=== PATIENT | female | born 1935 | race Caucasian/White ===

== ENCOUNTER 2017-02-19 12:07 | Emergency (ER) | payer MEDICARE, MEDICAID ==
[~2017-02-19] VITALS: Ht 157.5 cm; Wt 46.7 kg
--- NOTE | 2017-02-19 12:15 | NUR ---
RAC #20 IV ACCESS. BLOOD SAMPLE COLLECTED SENT TO LAB
[2017-02-19 12:17] LABS: BASOPHILS # (AUTO) 0.1 /CMM (0.0-0.2); BASOPHILS % (AUTO) 1.3 % (0.0-2.0); EOSINOPHILS % (AUTO) 0.5 % (0.0-6.0); HEMATOCRIT 32 % (33-45); LYMPHOCYTES # (AUTO) 1.9 /CMM (0.8-4.8); LYMPHOCYTES % (AUTO) 36.8 % (20.0-44.0); MEAN CORPUSCULAR HEMOGLOBIN 21 PG (26.0-33.0); MEAN CORPUSCULAR HGB CONC 31 g/dl (31.0-36.0); MEAN CORPUSCULAR VOLUME 65 fL (82-100); MONOCYTES # (AUTO) 0.2 /CMM (0.1-1.30); MONOCYTES % (AUTO) 4.7 % (2.0-12.0); NEUTROPHILS % (AUTO) 56.7 % (43.0-81.0); PLATELET COUNT (AUTO) 151 /CMM (150-450); RDW COEFFICIENT OF VARIATION 15.8 (11.5-15.0); RED BLOOD CELL COUNT(AUTO) 4.91 MIL/uL (4.0-5.2); WHITE BLOOD COUNT (AUTO) 5.2 K/uL (4.3-11.0)
--- NOTE | 2017-02-19 12:18 | NUR ---
PT TAKEN TO CT SCAN
[2017-02-19] MEDS ORDERED: IV NS 0.9% 1,000 ML BAG IV ONE (12:30)
[2017-02-19 12:32] LABS: CALCIUM, SERUM 8.5 mg/dL (8.5-10.1); CARBON DIOXIDE 31 mmol/L (21-32); CHLORIDE 105 mmol/L (98-107); CREATININE 0.8 mg/dL (0.6-1.3); GLUCOSE 191 mg/dL (74-106); POTASSIUM 3.9 mmol/L (3.5-5.1); SODIUM SERUM 140 mmol/L (136-145); UREA NITROGEN, BLOOD 17 mg/dL (7-18)
[2017-02-19 12:39] LABS: TROPONIN I < 0.017 ng/mL (0.00-0.056)
[2017-02-19 12:40] LABS: INR 1.01 (0.87-1.13); PROTHROMBIN TIME 10.5 SECS (9.5-12.7)
--- NOTE | 2017-02-19 12:56 | NUR ---
SPOKE WITH ALEJANDRA AT [facility] TO CHECK ON THE STATUS OF THE CT READ. PER ALEJANDRA THEY HAVE NOT RECEIVED IMAGES. TOLD ALEJANDRA I WILL CALL RADIOLOGY TO RESEND IMAGES AND ALEJANDRA SAID AGREED TO WATCH FOR THE IMAGES AND EXPEDITE THE READ ONCE RECEIVED.
--- NOTE | 2017-02-19 12:58 | NUR ---
CALLED RADIOLOGY AND ASKED FOR IMAGES TO BE RESENT TO [facility].
[2017-02-19] MEDS ORDERED: CALC500T3 PO (13:16)
[2017-02-19] MEDS ORDERED: MEMA28CA PO (13:16)
[2017-02-19] MEDS ORDERED: MULT-213 PO (13:16)
[2017-02-19] MEDS ORDERED: FOLI1TAB16 PO (13:16)
[2017-02-19] MEDS ORDERED: CHOL100062 PO (13:16)
[2017-02-19] MEDS ORDERED: LEVO88TA5 PO (13:16)
[2017-02-19] MEDS ORDERED: ESCI20TA PO (13:16)
--- NOTE | 2017-02-19 13:48 | NUR ---
URINE SAMPLE COLLECTED SENT TO LAB
[2017-02-19 13:58] LABS: APPEARANCE,URINE Clear (CLEAR); BILIRUBIN,URINE Negative (NEGATIVE); BLOOD, URINE Trace-lysed Ery/uL (NEGATIVE); COLOR,URINE Yellow (YELLOW); KETONES,URINE Negative (NEGATIVE); LEUKOCYTE ESTERASE ,URINE Negative (NEGATIVE); NITRITE, URINE Negative (NEGATIVE); PROTEIN,URINE Negative (NEGATIVE); UGLUCOSE Negative (NEGATIVE); UROBILINOGEN,URINE 0.2 EU/dL (0.2)
[2017-02-19 14:07] LABS: BACTERIA,URINE None seen /HPF (None Seen); RBC,URINE 0-2 /HPF (0-2); SQUAMOUS EPITHELIAL CELL,UR Few /HPF (None Seen); WBC,URINE 0-2 /HPF (0-3)
--- NOTE | 2017-02-19 14:45 | NUR ---
CALLED [facility] TO FOLLOW UP WITH DESTINY, SPOKE WITH GORAN WHO SAID THEY HAVE NOT YET RECEIVED THE IMAGES. TRANSFERRED CALL TO RADIOLOGY AND ASKED GORAN TO SPEAK TO THEM DIRECTLY TO VERIFY THAT IMAGES ARE RECEIVED.
--- NOTE | 2017-02-19 14:56 | NUR ---
CALLED BACK TO [facility] TO CONFIRM THAT IMAGES ARE RECEIVED AND TO EXPEDITE THE READ. PER BRANDEN AT [facility] THEY HAVE NOW RECEIVED THE IMAGES AND ARE NOW WORKING ON IT.
--- NOTE | 2017-02-19 15:25 | NUR ---
Patient discharged to home in stable condition. Written and verbal after care instructions given. Patient verbalizes understanding of instruction.
--- NOTE | 2017-02-19 15:25 | NUR ---
IV removed. Catheter intact and site benign. Pressure and 4x4 applied to site. No bleeding noted.
[2017-02-19 15:46] VITALS: BP 123/79
== END 2017-02-19 15:47 | disposition home or self-care (01) ==
LOC: ER 12:11
DX: R55 Syncope and collapse (principal); F02.80 Dementia in other diseases classified elsewhere, unspecified severity, without behavioral disturbance, psychotic disturbance, mood disturbance, and anxiety; G30.9 Alzheimer's disease, unspecified; F32.9 Major depressive disorder, single episode, unspecified; R82.99 Other abnormal findings in urine
CPT/HCPCS: 36415; 70450-TC; 71010-TC; 72125-TC; 80048-TC; 81000-TC; 82962-TC; 84484-TC; 85025-TC; 85730-TC; 87086-TC; A4606; J7030; Z7610

== ENCOUNTER 2017-09-30 14:46 | Emergency (ER) | payer MEDICARE, MEDICAID ==
[~2017-09-30] VITALS: Ht 157.5 cm; Wt 46.7 kg
[~2017-09-30 14:46] MED LIST: CALC500T3 PO; CHOL100062 PO; ESCI20TA PO; FOLI1TAB16 PO; LEVO88TA5 PO; MEMA28CA PO; MULT-213 PO
--- NOTE | 2017-09-30 14:46 | NUR ---
BIB 88 R. EYEBROW LAC, S/P SLIP AND FALL OUT OF SHOWER C-COLLAR IN PLACE
[2017-09-30] MEDS ORDERED: LIDOCAINE /MPF 1% VIAL 5 ML VIAL ONE (15:35)
--- NOTE | 2017-09-30 16:48 | NUR ---
Patient discharged to home in stable condition. Written and verbal after care instructions given. Patient verbalizes understanding of instruction.
[2017-09-30 16:51] VITALS: BP 130/90
== END 2017-09-30 16:57 | disposition home or self-care (01) ==
LOC: ER 14:50
DX: S01.111A Laceration without foreign body of right eyelid and periocular area, initial encounter (principal); S09.8XXA Other specified injuries of head, initial encounter; G30.9 Alzheimer's disease, unspecified; F02.80 Dementia in other diseases classified elsewhere, unspecified severity, without behavioral disturbance, psychotic disturbance, mood disturbance, and anxiety; F32.9 Major depressive disorder, single episode, unspecified; W01.198A Fall on same level from slipping, tripping and stumbling with subsequent striking against other object, initial encounter; Y93.89 Activity, other specified; Y92.89 Other specified places as the place of occurrence of the external cause; Y99.8 Other external cause status
CPT/HCPCS: 70450-TC; 72125-TC; A4606; A6402; J3490; Z7610

== ENCOUNTER 2017-10-07 15:42 | Emergency (ER) | payer MEDICARE, MEDICAID ==
[~2017-10-07] VITALS: Ht 152.4 cm; Wt 44.9 kg
[2017-10-07 16:02] VITALS: BP 134/77
== END 2017-10-07 16:53 | disposition home or self-care (01) ==
LOC: ER 15:46
DX: S01.111D Laceration without foreign body of right eyelid and periocular area, subsequent encounter (principal); F32.9 Major depressive disorder, single episode, unspecified; G30.9 Alzheimer's disease, unspecified; F02.80 Dementia in other diseases classified elsewhere, unspecified severity, without behavioral disturbance, psychotic disturbance, mood disturbance, and anxiety; X58.XXXD Exposure to other specified factors, subsequent encounter
CPT/HCPCS: 99282; A4606; Z7610

== ENCOUNTER 2020-01-18 09:08 | Emergency (ER) | payer MEDICARE, OTHER ==
[~2020-01-18] VITALS: Ht 160 cm; Wt 49.9 kg
[~2020-01-18 09:08] MED LIST changes: -CALC500T3 PO; +CALC500T89 PO
--- NOTE | 2020-01-18 09:17 | NUR ---
SEEN AND EXMAINED BY .
--- NOTE | 2020-01-18 09:20 | NUR ---
IV LINE ESTABLISHED BLOOD DRAWN AND SENT TO LAB.
[2020-01-18] MEDS ORDERED: IV NS 0.9% 500 ML BAG IV ONE (09:30)
[2020-01-18 09:36] LABS: BASOPHILS % (AUTO) 0.6 % (0.0-2.0); HEMOGLOBIN 11.1 g/dL (11.5-14.8); LYMPHOCYTES # (AUTO) 2.4 /CMM (0.8-4.8); MONOCYTES # (AUTO) 0.3 /CMM (0.1-1.30)
[2020-01-18 09:44] LABS: CALCIUM, SERUM 8.7 mg/dL (8.5-10.1); CREATININE 0.8 mg/dL (0.6-1.3); POTASSIUM 3.9 mmol/L (3.5-5.1)
[2020-01-18 09:50] LABS: ALBUMIN 3.5 g/dL (3.4-5.0); BILIRUBIN,DIRECT 0.1 mg/dL (0.0-0.2); BILIRUBIN,TOTAL 0.4 mg/dL (0.2-1.0); TOTAL PROTEIN, SERUM 7.2 g/dL (6.4-8.2)
--- NOTE | 2020-01-18 09:52 | NUR ---
SENIOR CORPORATE STRATEGY MANAGER AT BEDSIDE FOR XRAY.
[2020-01-18 10:07] LABS: EOSINOPHILS % (AUTO) 0.2 % (0.0-6.0); HEMATOCRIT 36 % (33-45); LYMPHOCYTES % (AUTO) 44.9 % (20.0-44.0); MEAN CORPUSCULAR HGB CONC 31 g/dl (31.0-36.0); MEAN CORPUSCULAR VOLUME 65 fL (82-100); NEUTROPHILS # (AUTO) 2.6 /CMM (1.8-8.9); NEUTROPHILS % (AUTO) 48.3 % (43.0-81.0); PLATELET COUNT (AUTO) 203 /CMM (150-450); RED BLOOD CELL COUNT(AUTO) 5.49 MIL/uL (4.0-5.2); WHITE BLOOD COUNT (AUTO) 5.4 K/uL (4.3-11.0)
--- NOTE | 2020-01-18 11:12 | NUR ---
report given to Danna ALEJANDRA for luis.
--- NOTE | 2020-01-18 11:22 | NUR ---
TRIP NUMBER [id number]. ETA 30 MINUTES.
[2020-01-18 12:25] VITALS: BP 116/71
--- NOTE | 2020-01-18 12:25 | NUR ---
patient picked up by private ambulance going back to snf in no distress.
== END 2020-01-18 12:25 ==
LOC: ER 09:12
DX: U07.1 COVID-19 (principal); J40 Bronchitis, not specified as acute or chronic; R55 Syncope and collapse; S00.03XA Contusion of scalp, initial encounter; W18.39XA Other fall on same level, initial encounter; Y92.129 Unspecified place in nursing home as the place of occurrence of the external cause; M50.321 Other cervical disc degeneration at C4-C5 level; M48.02 Spinal stenosis, cervical region; G30.9 Alzheimer's disease, unspecified; F02.80 Dementia in other diseases classified elsewhere, unspecified severity, without behavioral disturbance, psychotic disturbance, mood disturbance, and anxiety; Z79.899 Other long term (current) drug therapy; E89.0 Postprocedural hypothyroidism; Z79.890 Hormone replacement therapy
CPT/HCPCS: 36415; 70450; 71045; 72125; 80048; 80076; 85025; 87081; 93005; 96360; 99285; J7040

== ENCOUNTER 2022-06-02 11:55 | Inpatient (IN) | payer MEDICARE, OTHER ==
[~2022-06-02] VITALS: Ht 152.4 cm; Wt 46.3 kg
--- NOTE | 2022-06-02 11:55 | NUR ---
RECEIVED PT 86 YRS FEMALE TRANSFER FROM SNF WITH GENRALIZED WEEKNEESS AWAKE AND ALERT RESPIRATION SPON AND EASY
--- NOTE | 2022-06-02 12:50 | NUR ---
I&O CATHETER DONE FR # 15 CLEARE YELLOW COLOR UA SENT TO LAB
[2022-06-02 12:57] LABS: BASOPHILS % (AUTO) 0.2 % (0.0-2.0); EOSINOPHILS % (AUTO) 0.1 % (0.0-6.0); HEMATOCRIT 34 % (33-45); HEMOGLOBIN 10.6 g/dL (11.5-14.8); LYMPHOCYTES # (AUTO) 2.1 K/uL (0.8-4.8); LYMPHOCYTES % (AUTO) 33.8 % (20.0-44.0); MEAN CORPUSCULAR HGB CONC 31 g/dl (31.0-36.0); MEAN CORPUSCULAR VOLUME 65 fL (82-100); MONOCYTES # (AUTO) 0.6 K/uL (0.1-1.30); MONOCYTES % (AUTO) 9.1 % (2.0-12.0); NEUTROPHILS # (AUTO) 3.6 K/uL (1.8-8.9); NEUTROPHILS % (AUTO) 56.8 % (43.0-81.0); PLATELET COUNT (AUTO) 244 K/uL (150-450); RED BLOOD CELL COUNT(AUTO) 5.22 MIL/uL (4.0-5.2); WHITE BLOOD COUNT (AUTO) 6.3 K/uL (4.3-11.0)
[2022-06-02 13:19] LABS: SERUM AMMONIA 0 umol/L (11-32)
[2022-06-02 13:22] LABS: CALCIUM, SERUM 9.1 mg/dL (8.5-10.1); CARBON DIOXIDE 29 mmol/L (21-32); CHLORIDE 100 mmol/L (98-107); GLUCOSE 188 mg/dL (74-106); SODIUM SERUM 137 mmol/L (136-145); UREA NITROGEN, BLOOD 23 mg/dL (7-18)
[2022-06-02 13:27] LABS: ALANINE AMINOTRANSFERASE 30 U/L (12-78); ALBUMIN 3.7 g/dL (3.4-5.0); ALKALINE PHOSPHATASE 66 U/L (46-116); ASPARTATE AMINOTRANSFERASE 24 U/L (15-37); BILIRUBIN,DIRECT 0.1 mg/dL (0.0-0.2); BILIRUBIN,TOTAL 0.4 mg/dL (0.2-1.0); TOTAL PROTEIN, SERUM 7.9 g/dL (6.4-8.2)
[2022-06-02 13:31] LABS: THYROID STIMULATING HORMONE 2.011 uIU/mL (0.358-3.74)
[2022-06-02 13:51] LABS: BILIRUBIN,URINE NEGATIVE (NEGATIVE); COLOR,URINE YELLOW (YELLOW); LEUKOCYTE ESTERASE ,URINE 2+ (NEGATIVE); NITRITE, URINE POSITIVE (NEGATIVE); PH,URINE 5.5 (5.0-8.0); PROTEIN,URINE NEGATIVE (NEGATIVE); UGLUCOSE NEGATIVE (NEGATIVE); UROBILINOGEN,URINE 0.2 EU/dL (0.2)
[2022-06-02] MEDS ORDERED: CEFEPIME 1 GM in IV D5W 50 ML IV ONE (14:00)
[2022-06-02 14:08] LABS: BACTERIA,URINE Many /HPF (None Seen); SQUAMOUS EPITHELIAL CELL,UR Few /HPF (None Seen); WBC,URINE 21-50 /HPF (0-3)
--- NOTE | 2022-06-02 14:23 | NUR ---
PAGED EPIC, AWAITING CALLBACK.
--- NOTE | 2022-06-02 14:29 | NUR ---
COVID SWAB COLLECTED AND SENT TO LAB
[2022-06-02] MEDS ORDERED: ASPI-1169 PO (14:48)
[2022-06-02] MEDS ORDERED: CALC-883 PO (14:48)
[2022-06-02] MEDS ORDERED: LINA5TAB PO (14:48)
[2022-06-02] MEDS ORDERED: ATOR20TA PO (14:48)
[2022-06-02] MEDS ORDERED: CRAN425C6 PO (14:48)
[2022-06-02] MEDS ORDERED: PANT40TA2 PO (14:48)
[2022-06-02] MEDS ORDERED: LACT1CAP25 PO (14:48)
[2022-06-02] MEDS ORDERED: INSU100V7 SQ (14:48)
[2022-06-02] MEDS ORDERED: METF-442 PO (14:48)
[2022-06-02] MEDS ORDERED: INSU100V9 IJ (14:48)
[2022-06-02] MEDS ORDERED: MEMA10TA PO (14:48)
[2022-06-02] MEDS ORDERED: CRAN3875 PO (14:48)
--- NOTE | 2022-06-02 15:15 | NUR ---
MOVE SHEET SUBMITTED.
[2022-06-02] MEDS ORDERED: ACETAMINOPHEN 325 MG TABLET PO PRN (17:00)
[2022-06-02] MEDS ORDERED: HYDROCODONE/APAP 5/325MG TABLET PO PRN (17:00)
[2022-06-02] MEDS ORDERED: ONDANSETRON HCL/PF 4 MG/2 ML VIAL IVP PRN (17:00)
[2022-06-02] MEDS ORDERED: MAGNESIUM HYDROXIDE 30 ML UDC PO PRN (17:00)
[2022-06-02] MEDS ORDERED: CEFTRIAXONE 1 G in IV D5W 50 ML IV SCH (17:00)
[2022-06-02] MEDS ORDERED: Z GUARD REMEDY 4 OZ OINT TP PRN (17:00)
[2022-06-02] MEDS ORDERED: MAG HYDROX/AL HYDROX/SIMETH 30 ML UDC PO PRN (17:00)
[2022-06-02] MEDS: IV NS 0.9% 1,000 ML IV PRN (17:44)
[2022-06-02] MEDS ORDERED: CEFTRIAXONE 1GM BAG (ER ONLY) 50 ML IV ONE (17:44)
--- NOTE | 2022-06-02 18:17 | NUR ---
VITAL SIGNS WITHIN NORMAL LIMITS.
--- NOTE | 2022-06-02 18:25 | NUR ---
AMANDA PAYNE SENT TO LAB
[2022-06-02] MEDS: ENOXAPARIN SODIUM 30 MG/0.3 ML DISP.SYRIN SQ SCH (19:00)
[2022-06-02] MEDS: MEMANTINE HCL 5 MG TABLET PO SCH (19:00)
--- NOTE | 2022-06-02 19:29 | NUR ---
HAND OFF TREY ALEJANDRA
--- NOTE | 2022-06-02 21:33 | NUR ---
REPORT GIVEN TO NY LEWIS FOR YADI
--- NOTE | 2022-06-02 22:06 | NUR ---
PT TRANSFERRED TO 3W VIA ACLS PROTOCOL. VSS. ALL BELONGINGS WITH PT.
--- NOTE | 2022-06-02 22:07 | NUR ---
UPDATED SHRUTHI (DAUGHTER) [phone] REGARDING PT'S TRANSFER
--- NOTE | 2022-06-02 22:10 | NUR ---
MS NUTRITIONAL SERVICES COOK NOTE PT TRANSPORTED VIA GURNEY TO UNIT AT THIS TIME. PT ADMITTED TO [facility] UNIT FROM ER UNDER DR JACOB FOR ADMITTING DX UTI. PT IS ALERT AND CONFUSED. PT STABLE ON ROOM AIR. NO SOB OR S/S OF RESPIRATORY DISTRESS. BREATHING EVEN AND UNLABORED. SKIN IS INTACT. NOTED WITH IV ACCESS RAC 20G AND R WRIST 20G, INFILTRATED, ADMINISTERED ICE PACKS AND ELEVATED. UNABLE TO ORIENT PT TO UNIT, ROOM, AND STAFF DUE TO ALTERED MENTAL STATUS. PT BELONGINGS TAKEN HOME BY FAMILY IN ER, BELONGINGS LIST UPDATED. SAFETY PRECAUTIONS IN PLACE. BED IN LOWEST LOCKED POSITION, HOB ELEVATED, SIDE RAILS UP X3, AND CALL LIGHT AND TABLE WITHIN REACH. ALL NEEDS MET AT THIS TIME.
[2022-06-02 23:05] VITALS: BP 115/58
--- NOTE | 2022-06-02 23:34 | NUR ---
RN NOTE FACILITY REPORTED PT PREVIOUS DIET WAS PUREED. INFORMED HANDWRITING EXPERT NEVAEH WITH NEW ORDER FOR PUREED DIET. NOTED AND CARRIED OUT.
[2022-06-03 03:25] LABS: BAND % (MANUAL) 8 % (0.0-5.0); BASOPHILS % (MANUAL) 0 % (0.0-2.0); EOSINOPHILS % (MANUAL) 1 % (0-4); LYMPHOCYTES % (MANUAL) 29 % (16-48); MONOCYTES % (MANUAL) 7 % (0-11.0); NEUTROPHILS % (MANUAL) 55 (42-76)
[2022-06-03] MEDS: IV NS 0.9% 1,000 ML IV PRN (04:45)
--- NOTE | 2022-06-03 06:46 | NUR ---
MS RN CLOSING NOTE PT AWAKE IN BED. PT IS ALERT AND CONFUSED. PT STABLE ON ROOM AIR. NO SOB OR S/S OF RESPIRATORY DISTRESS. BREATHING EVEN AND UNLABORED. IV ACCESS RAC 20G AND L WRIST 22G, RUNNING NS @ 75 ML/HR. SAFETY PRECAUTIONS IN PLACE AT ALL TIMES. BED IN LOWEST LOCKED POSITION, HOB ELEVATED, SIDE RAILS UP X3, AND CALL LIGHT AND TABLE WITHIN REACH. ALL NEEDS MET AT THIS TIME AND WILL ENDORSE TO ONCOMING NURSE FOR YADI.
--- NOTE | 2022-06-03 07:00 | NUR ---
MS RN OPENING NOTES PATIENT LAYING IN BED, ALERT BUT NOT ORIENTED, STABLE ON ROOM AIR WITH NO S/S RESPIRATORY DISTRESS. L WRIST # 22 G IV CLEAN, INTACT, AND INFUSING NS @ 75 ML/HR. SAFETY MEASURES IN PLACE: BED IN LOWEST LOCKED POSITION, SIDE RAILS UP X 2, CALL LIGHT WITHIN REACH. WILL CONTINUE TO MONITOR.
[2022-06-03 07:26] LABS: BASOPHILS % (AUTO) 0.2 % (0.0-2.0); EOSINOPHILS % (AUTO) 0.4 % (0.0-6.0); HEMATOCRIT 30 % (33-45); HEMOGLOBIN 9.4 g/dL (11.5-14.8); LYMPHOCYTES % (AUTO) 53.4 % (20.0-44.0); MEAN CORPUSCULAR HGB CONC 32 g/dl (31.0-36.0); MEAN CORPUSCULAR VOLUME 65 fL (82-100); MONOCYTES % (AUTO) 9.2 % (2.0-12.0); NEUTROPHILS % (AUTO) 36.8 % (43.0-81.0); PLATELET COUNT (AUTO) 205 K/uL (150-450); WHITE BLOOD COUNT (AUTO) 5.2 K/uL (4.3-11.0)
[2022-06-03 07:27] LABS: LYMPHOCYTES # (AUTO) 2.8 K/uL (0.8-4.8); MONOCYTES # (AUTO) 0.5 K/uL (0.1-1.30); NEUTROPHILS # (AUTO) 1.9 K/uL (1.8-8.9)
[2022-06-03] MEDS: LEVOTHYROXINE SODIUM 88 MCG TABLET PO SCH ×2 (07:30→07:40)
[2022-06-03 08:00] VITALS: BP 144/72
[2022-06-03] MEDS: BLOOD SUGAR DIAGNOSTIC 1 EACH STRIP IN SCH ×4 (08:18→21:38)
[2022-06-03] MEDS ORDERED: DEXTROSE 50%-WATER 50 ML DISP.SYRIN IV PRN (08:30)
[2022-06-03 08:44] LABS: CALCIUM, SERUM 8.3 mg/dL (8.5-10.1); CREATININE 0.7 mg/dL (0.6-1.3); MAGNESIUM 1.7 mg/dL (1.8-2.4); POTASSIUM 3.4 mmol/L (3.5-5.1)
[2022-06-03] MEDS: MEMANTINE HCL 5 MG TABLET PO SCH ×2 (08:51→17:25)
[2022-06-03] MEDS: PANTOPRAZOLE 40 MG TABLET.DR PO SCH (08:51)
[2022-06-03] MEDS: ASPIRIN 81 MG TAB.CHEW PO SCH (08:51)
[2022-06-03 10:47] LABS: PHOSPHORUS 3.5 mg/dL (2.5-4.9)
[2022-06-03] MEDS ORDERED: POTASSIUM CHLORIDE 20 MEQ POWDER PACKET PO ONE (11:00)
[2022-06-03] MEDS: Magnesium 1GM/D5W 100ML PREMIX 100 ML IV SCH ×2 (11:14→12:17)
[2022-06-03 12:23] LABS: IRON, SERUM 22 ug/dl (50-175); TOTAL IRON BINDING CAPACITY 217 ug/dl (250-450)
[2022-06-03 12:57] LABS: BAND % (MANUAL) 3 % (0.0-5.0); EOSINOPHILS % (MANUAL) 1 % (0-4); LYMPHOCYTES % (MANUAL) 59 % (16-48); MONOCYTES % (MANUAL) 6 % (0-11.0); NEUTROPHILS % (MANUAL) 31 (42-76)
[2022-06-03] MEDS: ENOXAPARIN SODIUM 30 MG/0.3 ML DISP.SYRIN SQ SCH (17:25)
[2022-06-03] MEDS: CEFTRIAXONE 1 G in IV D5W 50 ML IV SCH (17:31)
--- NOTE | 2022-06-03 18:38 | NUR ---
MS RN CLOSING NOTES PATIENT LAYING IN BED, ALERT BUT NOT ORIENTED, STABLE ON ROOM AIR WITH NO S/S RESPIRATORY DISTRESS. L WRIST # 22 G IV CLEAN, INTACT, AND INFUSING NS @ 75 ML/HR. BILATERAL SCDs IN PLACE WITH CIRCULATION, MOTOR, SENSATION INTACT DISTALLY X 2. SAFETY MEASURES IN PLACE: BED IN LOWEST LOCKED POSITION, SIDE RAILS UP X 2, CALL LIGHT WITHIN REACH. ALL NEEDS MET. TURNED Q2H. WILL ENDORSE TO AIRPLANE ENGINEER FOR YADI.
--- NOTE | 2022-06-03 19:29 | NUR ---
RECEIVED PATIENT IN BED, ALERT AND AWAKE, ROOM AIR, WITH DEMENTIA, NON VERBAL, CALM, NO DISTRESS, NOT IN PAIN, NS AT 75 ML/HR, DNR/DNI, KEPT SAFE, FALL PRECAUTION, ASPIRATION PRECAUTION, WILL CONTINUE TO MONITOR.
[2022-06-03 20:29] VITALS: BP 142/86
[2022-06-03 20:32] VITALS: BP 142/86
[2022-06-03] MEDS: INSULIN REGULAR, HUMAN 100 UNIT/ML 3 ML VIAL SQ PRN (21:42)
[2022-06-04] MEDS: IV NS 0.9% 1,000 ML IV PRN (01:57)
--- NOTE | 2022-06-04 06:10 | NUR ---
ALERT AND AWAKE, NON VERBAL, STABLE ON ROOM AIR, NO COMPLAIN OF PAIN. INCONTINENT OF BOWEL AND BLADDER, PUREED DIET, LEFT WRIST, NS AT 75 ML/HR, ACCUCHECK AND SLIDING SCALE, CONTINUE IVF, SUPPORTIVE CARE, MONITOR RENAL FUNCTION, MONITOR AND REPLACE ELECTROLYTES. KEPT SAFE WILL CONTINUE TO MONITOR.
[2022-06-04] MEDS: INSULIN REGULAR, HUMAN 100 UNIT/ML 3 ML VIAL SQ PRN ×5 (06:34→22:05)
[2022-06-04] MEDS: BLOOD SUGAR DIAGNOSTIC 1 EACH STRIP IN SCH ×4 (06:37→22:02)
[2022-06-04 07:25] LABS: BASOPHILS % (AUTO) 0.2 % (0.0-2.0); EOSINOPHILS % (AUTO) 1.1 % (0.0-6.0); HEMATOCRIT 32 % (33-45); HEMOGLOBIN 9.9 g/dL (11.5-14.8); LYMPHOCYTES # (AUTO) 1.9 K/uL (0.8-4.8); MEAN CORPUSCULAR HGB CONC 31 g/dl (31.0-36.0); MEAN CORPUSCULAR VOLUME 65 fL (82-100); MONOCYTES # (AUTO) 0.4 K/uL (0.1-1.30); NEUTROPHILS # (AUTO) 2.1 K/uL (1.8-8.9); NEUTROPHILS % (AUTO) 47.7 % (43.0-81.0); PLATELET COUNT (AUTO) 209 K/uL (150-450); RED BLOOD CELL COUNT(AUTO) 4.88 MIL/uL (4.0-5.2); WHITE BLOOD COUNT (AUTO) 4.5 K/uL (4.3-11.0)
--- NOTE | 2022-06-04 07:28 | NUR ---
RN OPENING NOTE RECEIVED PATIENT IN BED AWAKE, NON-VERBAL. ON ROOM AIR, TOLERATING WELL. NO SOB NOTED, BREATHING EVEN AND UNLABORED. NO S/SX OF PAIN OR DISCOMFORT NOTED. WITH IV ACCESS ON LEFT WRIST #22G, INTACT AND PATENT WITH NS @ 75 ML/HR INFUSING WELL. SAFETY MEASURE IN PLACE, BED IN LOWEST AND LOCKED POSITION, SIDE RAILS UP X2, CALL LIGHT PLACED WITHIN EASY REACH. WILL CONTINUE TO MONITOR PATIENT.
[2022-06-04 07:54] LABS: CALCIUM, SERUM 7.9 mg/dL (8.5-10.1); CARBON DIOXIDE 27 mmol/L (21-32); CHLORIDE 108 mmol/L (98-107); CREATININE 0.5 mg/dL (0.6-1.3); GLUCOSE 91 mg/dL (74-106); MAGNESIUM 2.1 mg/dL (1.8-2.4); POTASSIUM 4.1 mmol/L (3.5-5.1); SODIUM SERUM 143 mmol/L (136-145); UREA NITROGEN, BLOOD 8 mg/dL (7-18)
[2022-06-04 08:00] VITALS: BP_SYST 130; BP_SYST 157; BP_DIAS 64; BP_DIAS 78
[2022-06-04] MEDS: ASPIRIN 81 MG TAB.CHEW PO SCH (08:14)
[2022-06-04] MEDS: LEVOTHYROXINE SODIUM 88 MCG TABLET PO SCH (08:14)
[2022-06-04] MEDS: MEMANTINE HCL 5 MG TABLET PO SCH ×2 (08:14→16:15)
[2022-06-04] MEDS: PANTOPRAZOLE 40 MG TABLET.DR PO SCH (08:18)
[2022-06-04 10:35] LABS: BAND % (MANUAL) 4 % (0.0-5.0); BASOPHILS % (MANUAL) 0 % (0.0-2.0); EOSINOPHILS % (MANUAL) 1 % (0-4); LYMPHOCYTES % (MANUAL) 57 % (16-48); MONOCYTES % (MANUAL) 5 % (0-11.0); NEUTROPHILS % (MANUAL) 39 (42-76)
[2022-06-04] MEDS: ENOXAPARIN SODIUM 30 MG/0.3 ML DISP.SYRIN SQ SCH (16:16)
[2022-06-04] MEDS: CEFTRIAXONE 1 G in IV D5W 50 ML IV SCH (17:20)
--- NOTE | 2022-06-04 18:42 | NUR ---
RN CLOSING NOTE PATIENT ASLEEP IN BED. NO SIGNS OF ACUTE DISTRESS NOTED. REMAINS STABLE ON ROOM AIR, NO SOB NOTED, BREATHING EVEN AND UNLABORED. NO S/SX OF PAIN OR DISCOMFORT. IV ACCESS ON LEFT WRIST #22G, INTACT AND PATENT, SALINE LOCKED. ALL DUE MEDS GIVEN, TOLERATED WELL. ASSISTED PATIENT WITH MEALS, WITH GOOD APPETITE. ABLE TO CONSUME >75% OF MEALS. ASPIRATION PRECAUTIONS OBSERVED. SAFETY MEASURE MAINTAINED. BED IN LOWEST AND LOCKED POSITION, SIDE RAILS UP X2, CALL LIGHT PLACED WITHIN EASY REACH. WILL ENDORSE TO NEXT SHIFT FOR CONTINUITY OF CARE.
--- NOTE | 2022-06-04 19:45 | NUR ---
MS RN OPENING NOTE RECEIVED PATIENT IN BED; ASLEEP, EASILY AROUSABLE. ON ROOM AIR; TOLERATING WELL. NOT IN ANY FORM OF RESPIRATORY DISTRESS. BREATHING EVEN AND NONLABORED. NO S/S OF PAIN OR DISCOMFORT NOTED AT THIS TIME. WITH IV ACCESS ON LEFT WRIST 22G; PATENT, INTACT AND SALINE LOCKED. SAFETY PRECAUTIONS IMPLEMENTED: BED IN LOWEST LOCKED POSITION, SIDE RAILS UP X 3, CALL LIGHT AND TABLE WITHIN EASY REACH. WILL CONTINUE PLAN OF CARE.
[2022-06-04 20:00] VITALS: BP 145/88
--- NOTE | 2022-06-04 21:20 | NUR ---
RN NOTE TRANSFER OF CARE GIVEN TO NY DOBSON.
--- NOTE | 2022-06-04 21:20 | NUR ---
MS RN OPENING NOTE RECEIVED REPORT FROM NY ORELLANA. PATIENT IN BED, WITH HOB ELEVATED, ASLEEP BUT EASY TO AROUSE AND RESPONDS TO VERBAL AND TACTILE STIMULI. AFEBRILE AND NOT IN ANY FORM OF ACUTE DISTRESS. BREATHING EVEN AND NON LABORED. NO C/O PAIN OR DISCOMFORT. WITH IV ACCESS ON L WRIST 22G- SL. SAFETY MEASURES IN PLACE. KEPT BED IN LOCKED AND IN LOW POSITION. SIDE RAILS UP X2. CALL LIGHT WITHIN EASY REACH.
--- NOTE | 2022-06-05 06:32 | NUR ---
MS RN CLOSING NOTE PATIENT IN BED, WITH HOB ELEVATED, ASLEEP BUT EASY TO AROUSE AND RESPONDS TO VERBAL AND TACTILE STIMULI. AFEBRILE AND NOT IN ANY FORM OF ACUTE DISTRESS. BREATHING EVEN AND NON LABORED. NO C/O PAIN OR DISCOMFORT THROUGHOUT THE SHIFT. WITH IV ACCESS ON L WRIST 22G- SL. MONITORED FOR ANY S/SX. OF HYPO/HYPERGLYCEMIA. MEDICATED ORDERED. TURNED AND REPOSITIONED EVERY 2 HOURS AND TOLERATED TO PROMOTE PROPER CIRCULATION AND COMFORT BY ASSIGNED STAFF. SAFETY MEASURES IN PLACE. KEPT BED IN LOCKED AND IN LOW POSITION. SIDE RAILS UP X2. CALL LIGHT WITHIN EASY REACH. ALL NURSING NEEDS ATTENDED. ENDORSED TO INCOMING SHIFT FOR CONTINUITY OF CARE.
[2022-06-05 06:34] LABS: BASOPHILS % (AUTO) 0.6 % (0.0-2.0); EOSINOPHILS % (AUTO) 2.1 % (0.0-6.0); HEMATOCRIT 32 % (33-45); LYMPHOCYTES # (AUTO) 2.3 K/uL (0.8-4.8); LYMPHOCYTES % (AUTO) 50.4 % (20.0-44.0); MEAN CORPUSCULAR HGB CONC 31 g/dl (31.0-36.0); MEAN CORPUSCULAR VOLUME 66 fL (82-100); MONOCYTES # (AUTO) 0.5 K/uL (0.1-1.30); MONOCYTES % (AUTO) 10.8 % (2.0-12.0); NEUTROPHILS # (AUTO) 1.6 K/uL (1.8-8.9); NEUTROPHILS % (AUTO) 36.1 % (43.0-81.0); PLATELET COUNT (AUTO) 212 K/uL (150-450); RED BLOOD CELL COUNT(AUTO) 4.89 MIL/uL (4.0-5.2); WHITE BLOOD COUNT (AUTO) 4.5 K/uL (4.3-11.0)
[2022-06-05] MEDS: BLOOD SUGAR DIAGNOSTIC 1 EACH STRIP IN SCH ×2 (06:35→12:07)
[2022-06-05 06:47] LABS: CALCIUM, SERUM 8.1 mg/dL (8.5-10.1); CREATININE 0.6 mg/dL (0.6-1.3); POTASSIUM 3.7 mmol/L (3.5-5.1)
--- NOTE | 2022-06-05 07:46 | NUR ---
MS RN OPENING NOTE RECEIVED PATIENT IN BED, WITH HOB ELEVATED, AWAKE, ALERT AND VERBALLY RESPONSIVE, AFEBRILE AND NOT IN ANY FORM OF ACUTE DISTRESS. BREATHING EVEN AND NON LABORED. NO C/O PAIN OR DISCOMFORT AT THIS TIME. WITH IV ACCESS ON L WRIST 22G- SL. SAFETY MEASURES IN PLACE. KEPT BED IN LOCKED AND IN LOW POSITION. SIDE RAILS UP X2. CALL LIGHT WITHIN EASY REACH. WILL CONTINUE PLAN OF CARE.
[2022-06-05] MEDS: MEMANTINE HCL 5 MG TABLET PO SCH (08:17)
[2022-06-05] MEDS: ASPIRIN 81 MG TAB.CHEW PO SCH (08:17)
[2022-06-05] MEDS: PANTOPRAZOLE 40 MG TABLET.DR PO SCH (08:17)
[2022-06-05] MEDS: LEVOTHYROXINE SODIUM 88 MCG TABLET PO SCH (08:17)
[2022-06-05 08:33] VITALS: BP 166/84
[2022-06-05] MEDS ORDERED: CEPH500C2 PO (11:00)
[2022-06-05 11:25] LABS: BAND % (MANUAL) 2 % (0.0-5.0); BASOPHILS % (MANUAL) 0 % (0.0-2.0); EOSINOPHILS % (MANUAL) 2 % (0-4); LYMPHOCYTES % (MANUAL) 53 % (16-48); MONOCYTES % (MANUAL) 12 % (0-11.0); NEUTROPHILS % (MANUAL) 31 (42-76)
--- NOTE | 2022-06-05 14:12 | NUR ---
RN NOTES CALLED [facility], SPOKE TO KEON ALEJANDRA, GAVE REPORT, GO OVER DISCHARGE SUMMARY INSTRUCTIONS, CONFIRMED UNDERSTANDING, INFORMED DAUGHTER SHRUTHI OF THE OPTICAL DISPENSER TIME.
--- NOTE | 2022-06-05 15:30 | NUR ---
EDUCATIONAL PARAPROFESSIONAL NOTES PATIENT LEFT THE HOSPITAL VIA GURNEY ACCOMPANIED BY 2 EMT'S, ALL DISCHARGE PAPERWORKS RELEASED TO THE PATIENT, PATIENT NOTED WITH NO BELONGINGS. PATIENT EXITED THE HOSPITAL STABLE.
== END 2022-06-05 15:36 | DRG 689 ==
LOC: ER 12:05 → TRANSITION 18:52 → MED 21:20
PROVIDERS: ADMIT Internal Medicine; ATTEND Internal Medicine
DX: N39.0 Urinary tract infection, site not specified (principal); G93.41 Metabolic encephalopathy; N17.0 Acute kidney failure with tubular necrosis; E03.9 Hypothyroidism, unspecified; D50.9 Iron deficiency anemia, unspecified; E11.9 Type 2 diabetes mellitus without complications; E78.5 Hyperlipidemia, unspecified; E83.42 Hypomagnesemia; K21.9 Gastro-esophageal reflux disease without esophagitis; Z79.4 Long term (current) use of insulin; Z79.84 Long term (current) use of oral hypoglycemic drugs; Z79.899 Other long term (current) drug therapy; B96.20 Unspecified Escherichia coli [E. coli] as the cause of diseases classified elsewhere; F03.90 Unspecified dementia, unspecified severity, without behavioral disturbance, psychotic disturbance, mood disturbance, and anxiety
CPT/HCPCS: 36415; 70450-TC; 71045-TC; 80048-TC; 80076-TC; 81001; 82140-TC; 82962-TC; 83540-TC; 83735-TC; 84100-TC; 84443-TC; 84484-TC; 85025-TC; 85730-TC; 87040-TC; 87081-TC; 87086-TC; C9803; G0378; J0692; J0696; J1650; J1815; J3475; J7030; J7060; U0003

== ENCOUNTER 2022-10-04 20:53 | Inpatient (IN) | payer MEDICARE, OTHER ==
[~2022-10-04] VITALS: Ht 160 cm; Wt 43.5 kg
[~2022-10-04 20:53] MED LIST changes: +ASPI-1169 PO; +ATOR20TA PO; +CALC-1029 PO; +CALC-883 PO; -CALC500T89 PO; +CEPH500C2 PO; +CHOL100044 PO; +CRAN3875 PO; +CRAN425C6 PO; +CYAN250010 PO; +DENO60DI SQ; +DONE10TA44 PO; +EPOE40003 SQ; -ESCI20TA PO; -FOLI1TAB16 PO; +FOLI1TAB94 PO; +INSU100V7 SQ; +INSU100V9 SQ; +LACT1CAP25 PO; +LINA5TAB PO; +MEMA10TA PO; -MEMA28CA PO; +METF-442 PO; -MULT-213 PO; +PANT40TA2 PO
[2022-10-04] MEDS ORDERED: CEFEPIME 1 GM in IV D5W 50 ML IV ONE (21:30)
[2022-10-04] MEDS ORDERED: VANCOMYCIN 1 GM in IV D5W 250 ML IV ONE (21:30)
--- NOTE | 2022-10-04 21:30 | NUR ---
COVID SWAB COLLECTED
[2022-10-04] MEDS ORDERED: ACETAMINOPHEN 650 MG/SUPP.RECT RC ONE ×2 (21:58→22:00)
[2022-10-04] MEDS ORDERED: IV NS 0.9% 1,000 ML IV ONE (22:00)
--- NOTE | 2022-10-04 22:00 | NUR ---
F/C 16FR INSERTED URINE COLLECTED AND SENT TO LAB
--- NOTE | 2022-10-04 22:00 | NUR ---
R MARK ANTHONY #20G S/L BLOOD COLLECTED AND SENT TO LAB
[2022-10-04 22:06] LABS: BASOPHILS % (AUTO) 0.2 % (0.0-2.0); HEMATOCRIT 34 % (33-45); HEMOGLOBIN 10.4 g/dL (11.5-14.8); LYMPHOCYTES # (AUTO) 0.6 K/uL (0.8-4.8); LYMPHOCYTES % (AUTO) 4.4 % (20.0-44.0); MEAN CORPUSCULAR HGB CONC 31 g/dl (31.0-36.0); MEAN CORPUSCULAR VOLUME 65 fL (82-100); MONOCYTES # (AUTO) 0.8 K/uL (0.1-1.30); MONOCYTES % (AUTO) 5.4 % (2.0-12.0); NEUTROPHILS # (AUTO) 12.9 K/uL (1.8-8.9); PLATELET COUNT (AUTO) 266 K/uL (150-450); RED BLOOD CELL COUNT(AUTO) 5.16 MIL/uL (4.0-5.2); WHITE BLOOD COUNT (AUTO) 14.3 K/uL (4.3-11.0)
[2022-10-04] MEDS ORDERED: CEFEPIME 1 GM VIAL ONE (22:08)
[2022-10-04] MEDS ORDERED: VANCOMYCIN 1 GM VIAL ONE (22:08)
--- NOTE | 2022-10-04 22:22 | NUR ---
TITRATED PT FROM NRB 15LPM TO O2 4LPM N/C; PT TOLERATING WELL AT 99%
[2022-10-04] MEDS ORDERED: IOHEXOL-350 100 ML VIAL IV ONE (22:26)
[2022-10-04] MEDS ORDERED: IV NS 0.9% 250 ML IV ONE (22:27)
[2022-10-04] MEDS ORDERED: CT SWABBABLE VALVE TRANS SET 1 EA INFUS.SET MC ONE (22:27)
[2022-10-04 22:28] LABS: CALCIUM, SERUM 9.2 mg/dL (8.5-10.1); CARBON DIOXIDE 25 mmol/L (21-32); CHLORIDE 105 mmol/L (98-107); CREATININE 0.6 mg/dL (0.6-1.3); GLUCOSE 203 mg/dL (74-106); POTASSIUM 3.7 mmol/L (3.5-5.1); SODIUM SERUM 138 mmol/L (136-145); UREA NITROGEN, BLOOD 14 mg/dL (7-18)
[2022-10-04 22:41] LABS: ALANINE AMINOTRANSFERASE 7 U/L (12-78); ALBUMIN 3.8 g/dL (3.4-5.0); ALKALINE PHOSPHATASE 54 U/L (46-116); ASPARTATE AMINOTRANSFERASE 12 U/L (15-37); BILIRUBIN,DIRECT 0.2 mg/dL (0.0-0.2); BILIRUBIN,TOTAL 0.8 mg/dL (0.2-1.0); TOTAL PROTEIN, SERUM 7.2 g/dL (6.4-8.2)
[2022-10-04 22:59] LABS: LYMPHOCYTES % (MANUAL) 14 % (16-48); MONOCYTES % (MANUAL) 3 % (0-11.0); NEUTROPHILS % (MANUAL) 83 (42-76)
[2022-10-04] MEDS ORDERED: Z GUARD REMEDY 4 OZ OINT TP PRN (23:00)
[2022-10-04] MEDS ORDERED: MAGNESIUM HYDROXIDE 30 ML UDC PO PRN (23:00)
[2022-10-04] MEDS ORDERED: ONDANSETRON HCL/PF 4 MG/2 ML VIAL IVP PRN (23:00)
[2022-10-04] MEDS ORDERED: ACETAMINOPHEN 325 MG TABLET PO PRN (23:00)
[2022-10-04] MEDS ORDERED: MAG HYDROX/AL HYDROX/SIMETH 30 ML UDC PO PRN (23:00)
[2022-10-04] MEDS ORDERED: ZOLPIDEM TARTRATE 5 MG TABLET PO PRN (23:00)
[2022-10-04] MEDS ORDERED: IV NS 0.9% 1,000 ML IV PRN (23:00)
[2022-10-04] MEDS ORDERED: DEXTROSE 50%-WATER 50 ML DISP.SYRIN IV PRN (23:00)
--- NOTE | 2022-10-04 23:07 | NUR ---
2.3 LACTIC ACID, AWARE
[2022-10-04 23:17] LABS: BILIRUBIN,URINE NEGATIVE (NEGATIVE); COLOR,URINE DARK YELLOW (YELLOW); LEUKOCYTE ESTERASE ,URINE 3+ (NEGATIVE); NITRITE, URINE POSITIVE (NEGATIVE); PH,URINE 5.5 (5.0-8.0); PROTEIN,URINE NEGATIVE (NEGATIVE); UGLUCOSE NEGATIVE (NEGATIVE); UROBILINOGEN,URINE 0.2 EU/dL (0.2)
--- NOTE | 2022-10-04 23:23 | NUR ---
REPORT GIVEN TO MS JORGE TELE [phone]
[2022-10-04 23:24] LABS: BACTERIA,URINE Moderate /HPF (None Seen); SQUAMOUS EPITHELIAL CELL,UR Few /HPF (None Seen); WBC,URINE 21-50 /HPF (0-3)
--- NOTE | 2022-10-04 23:41 | NUR ---
PT TRANSFERRING TO 3W 304 VIA ACLS PROTOCOL. VSS. SHRUTHI DAUGHTER AWARE.
[2022-10-04 23:45] VITALS: BP 131/66
[2022-10-05] MEDS: ENOXAPARIN SODIUM 40 MG/0.4 ML DISP.SYRIN SQ SCH ×2 (01:17→20:51)
--- NOTE | 2022-10-05 01:38 | NUR ---
RN Notes Received call from daughter, Catalina, who provided phone number of . Read back and verified.
--- NOTE | 2022-10-05 01:39 | NUR ---
Admission Notes Pt arrived via gurney at approximately 2345 accompanied by RN and EMT. AOX1. ON NC 5LPM and tolerating well. No SOB noted. No s/sx of respiratory distress noted. Tele monito detects ST with rate of 108. IV access in R Hand #20G running NS @ 90 mL/hr. Wounds noted and pictures taken. Safety precautions in place: bed in lowest, locked position, siderails upX2, and brakes on. Table and call light within reach. All needs met at this time.
--- NOTE | 2022-10-05 02:08 | NUR ---
RN Notes Received critical lab value for lactic acid of 4.0 Quyen Carvajal made aware. Ordered fluids to be increased to 120 mL/hr and re-check lactic acid in AM.
--- NOTE | 2022-10-05 02:24 | NUR ---
RN Notes Quyen Carvajal aware of DNR/DNI. Per Quyen it is okay to put in the order for DNR/DNI.
[2022-10-05 04:00] VITALS: BP 120/67
[2022-10-05 06:17] LABS: BASOPHILS % (AUTO) 0.2 % (0.0-2.0); HEMATOCRIT 29 % (33-45); HEMOGLOBIN 9.1 g/dL (11.5-14.8); LYMPHOCYTES # (AUTO) 2.3 K/uL (0.8-4.8); LYMPHOCYTES % (AUTO) 16.1 % (20.0-44.0); MEAN CORPUSCULAR HGB CONC 31 g/dl (31.0-36.0); MEAN CORPUSCULAR VOLUME 66 fL (82-100); MONOCYTES # (AUTO) 0.9 K/uL (0.1-1.30); MONOCYTES % (AUTO) 6.7 % (2.0-12.0); NEUTROPHILS # (AUTO) 10.9 K/uL (1.8-8.9); PLATELET COUNT (AUTO) 238 K/uL (150-450); RED BLOOD CELL COUNT(AUTO) 4.45 MIL/uL (4.0-5.2); WHITE BLOOD COUNT (AUTO) 14.2 K/uL (4.3-11.0)
[2022-10-05 06:19] LABS: ABG BASE EXCESS 1.8 mmol/L; ABG OXYGEN SATURATION 98.3 % (92.0-98.5); ABG PCO2 34.2 mmHg (35.0-45.0); ABG PH 7.483 (7.350-7.450); ABG PO2 115.8 mmHg (75.0-100.0); AaDO2 43.5 mmHg; COHb 0.1 % (0.5-1.5); MetHb 0.4 % (0.0-1.5); O2Hb 97.8 % (94.0-97.0); SITE, ABG Left Radial; VENT MODE, BG 2L NASAL CANNULA
[2022-10-05] MEDS: BLOOD SUGAR DIAGNOSTIC 1 EACH STRIP IN SCH ×4 (06:30→23:20)
[2022-10-05] MEDS: INSULIN REGULAR, HUMAN 100 UNIT/ML 3 ML VIAL SQ PRN ×4 (06:31→17:06)
--- NOTE | 2022-10-05 06:48 | NUR ---
RN Closing Notes Pt in bed, asleep, awakens to tactile stimuli. AOX1. ON NC 2LPM and tolerating well. No SOB noted. No s/sx of respiratory distress noted. Tele monitor detects ST with rate of 108. IV access in R Hand #20G running NS @ 120 mL/hr. Wounds noted and pictures taken. All orders carried out. All needs met. Pt kept clean and dry. Safety precautions in place: bed in lowest, locked position, siderails upX2, and brakes on. Table and call light within reach. Will endorse to oncoming shift for YADI.
[2022-10-05 06:57] LABS: CALCIUM, SERUM 8.1 mg/dL (8.5-10.1); CARBON DIOXIDE 26 mmol/L (21-32); CHLORIDE 108 mmol/L (98-107); CREATININE 0.7 mg/dL (0.6-1.3); GLUCOSE 210 mg/dL (74-106); MAGNESIUM 1.5 mg/dL (1.8-2.4); POTASSIUM 3.8 mmol/L (3.5-5.1); SODIUM SERUM 144 mmol/L (136-145); UREA NITROGEN, BLOOD 14 mg/dL (7-18)
[2022-10-05] MEDS: PANTOPRAZOLE 40 MG TABLET.DR PO SCH (07:00)
[2022-10-05 07:13] LABS: PHOSPHORUS 2.5 mg/dL (2.5-4.9)
--- NOTE | 2022-10-05 07:26 | NUR ---
DOCK PUMPER OPENING NOTE RECEIVED PT ASLEEP IN BED, EASILY AROUSED. PT IS ALERT BUT X0 ORIENTATION, NON-VERBAL. REORIENTED PT NEEDED. PT IS ON O2 AT 2L/MIN VIA NASAL CANNULA, TOLERATING WELL. NO SOB NOTED. NOT IN ANY SIGN OF RESPIRATORY DISTRESS. KEPT HOB ELEVATED. PT ON TELE BRIDGE WELDER WITH CURRENT READING OF SINUS TACH, HR 105. NO SIGNS OF CARDIAC DISTRESS NOTED AT THIS TIME. IV ACCESS ON RIGHT HAND G#20 INTACT, AND PATENT WITH NS INFUSING AT 120ML/HR. SAFETY MEASURES IN PLACE: BED IN LOWEST AND LOCKED POSITION, SIDE RAILS UP X3, BED ALARM ON, ON ASPIRATION PRECAUTION, AND CALL LIGHT WITHIN REACH. WILL CONTINUE PT WITH PLAN OF CARE.
[2022-10-05] MEDS: LEVOTHYROXINE SODIUM 88 MCG TABLET PO SCH (07:30)
--- NOTE | 2022-10-05 07:43 | NUR ---
WOUND CARE CONSULT: PT PRESENTS WITH INTACT SACRAL DEEP TISSUE INJURY, PRESENT ON ADMISSION. RECOMMENDATIONS MADE FOR SKIN PROTECTION. DISCUSSED WITH NURSING STAFF. PT TO BE PLACED ON ISOFLEX LOW AIRLOSS BED. IN AGREEMENT WITH PLAN OF CARE. HOLA DUEÑAS NOTED. Addendum: 10/05/22 at 0744 by ALEJANDRO HERRERA WNDNU Amended: Links added.
[2022-10-05 08:00] VITALS: BP 101/51
--- NOTE | 2022-10-05 08:17 | NUR ---
RN NOTE RECEIVED A CALL FROM [facility] REPORTING CRITICAL LAB RESULT OF LACTIC ACID 2.9. CALLED HOSPITALIST BARB MERRILL NP AND MADE AWARE OF THE CRITICAL RESULT WITH NO NEW ORDERS AT THIS TIME.
[2022-10-05] MEDS: CHOLECALCIFEROL 1,000 UNIT TABLET (VIT D3) PO SCH (08:42)
[2022-10-05] MEDS: LACTOBACILLUS RHAMNOSUS GG 1 EACH CAP.SPRINK PO SCH (08:42)
[2022-10-05] MEDS: LINAGLIPTIN 5 MG TABLET PO SCH (08:42)
[2022-10-05] MEDS: ASPIRIN 81 MG TAB.CHEW PO SCH (08:42)
[2022-10-05] MEDS: MEMANTINE HCL 5 MG TABLET PO SCH ×2 (08:42→17:14)
[2022-10-05] MEDS: DONEPEZIL 5 MG TABLET PO SCH (08:42)
[2022-10-05] MEDS: FOLIC ACID 1 MG TABLET PO SCH (08:42)
[2022-10-05] MEDS: VANCOMYCIN 500 MG in IV D5W 100 ML IV SCH ×2 (08:58→21:28)
[2022-10-05] MEDS ORDERED: Medication Not On Formulary EA (Cran/Vitc/Mannose/Inulin/Brom (Uti-Stat Liquid) 30 ML) PO SCH (09:00)
[2022-10-05] MEDS: IV NS 0.9% 1,000 ML IV PRN ×2 (09:12→20:34)
[2022-10-05] MEDS ORDERED: IOHEXOL-350 100 ML VIAL IV ONE (09:25)
[2022-10-05] MEDS ORDERED: IV NS 0.9% 250 ML IV ONE (09:26)
[2022-10-05] MEDS ORDERED: Magnesium 1GM/D5W 100ML PREMIX 100 ML IV SCH (10:00)
[2022-10-05] MEDS: ACETYLCYSTEINE 10% SOLN 400 MG/4 ML VIAL NEB SCH ×3 (11:30→23:39)
[2022-10-05] MEDS: IPRATROPIUM NEB FS 0.5 MG/2.5 ML AMPUL.NEB NEB SCH ×3 (11:30→19:46)
[2022-10-05] MEDS ORDERED: MAGN400T26 PO (12:05)
[2022-10-05] MEDS ORDERED: ONDA4TAB5 PO (12:05)
[2022-10-05] MEDS ORDERED: ACET-2605 PO (12:05)
[2022-10-05] MEDS ORDERED: ACET-868 PO (12:05)
[2022-10-05] MEDS ORDERED: DEXT50DI8 IV (12:05)
--- NOTE | 2022-10-05 18:43 | NUR ---
FIRE EQUIPMENT INSPECTOR HELPER CLOSING NOTE PT AWAKE IN BED WITH DAUGHTER AT BEDSIDE. PT IS ALERT BUT X0 ORIENTATION. PT MUMBLING AT TIMES. REORIENTED PT NEEDED. PT IS ON O2 AT 2L/MIN VIA NASAL CANNULA, TOLERATING WELL. NO SOB NOTED. NOT IN ANY SIGN OF RESPIRATORY DISTRESS. KEPT HOB ELEVATED. PT ON TELE SKEIN WINDING OPERATOR WITH CURRENT READING OF SINUS RHYTHM, HR 78. NO SIGNS OF CARDIAC DISTRESS NOTED AT THIS TIME. IV ACCESS ON RIGHT HAND G#20 INTACT, AND PATENT WITH NS INFUSING AT 120ML/HR. SIMENTAL CATH IN PLACE AND DRAINING WELL. ALL NEEDS ATTENDED. KEPT CLEAN AND COMFORTABLE AT ALL TIMES. TURNED AND REPOSITIONED Q2HRS AND NEEDED. SAFETY MEASURES IN PLACE: BED IN LOWEST AND LOCKED POSITION, SIDE RAILS UP X3, BED ALARM ON, ON ASPIRATION PRECAUTION, AND CALL LIGHT WITHIN REACH. WILL ENDORSE TO DOUBLE HEAD MACHINE OPERATOR NURSE FOR YADI.
--- NOTE | 2022-10-05 19:15 | NUR ---
ASSOCIATE PROFESSOR OF ENGLISH OPENING NOTE RECEIVED PATIENT AWAKE IN BED. PATIENT IS ALERT BUT X0 ORIENTATION. PATIENT IS MUMBLING. PATIENT IS ON O2 AT 2L/MIN VIA NASAL CANNULA, TOLERATING WELL. NO SOB NOTED. NOT IN ANY SIGN OF RESPIRATORY DISTRESS. KEPT HOB ELEVATED. PATIENT ON TELE LEAD SUSTAINABILITY SPECIALIST WITH CURRENT READING OF SINUS RHYTHM, HR 82. NO SIGNS OF CARDIAC DISTRESS NOTED AT THIS TIME. IV ACCESS ON RIGHT HAND G#20 INTACT, AND PATENT WITH NS INFUSING AT 120ML/HR. SIMENTAL CATH IN PLACE AND DRAINING WELL. SAFETY MEASURES IN PLACE: BED IN LOWEST AND LOCKED POSITION, SIDE RAILS UP X3, BED ALARM ON, ON ASPIRATION PRECAUTION, AND CALL LIGHT WITHIN REACH.
[2022-10-05 20:00] VITALS: BP 126/79
[2022-10-05 20:15] VITALS: BP 129/79
[2022-10-05] MEDS: CEFEPIME 1 GM in IV D5W 50 ML IV SCH (20:47)
[2022-10-05] MEDS: ATORVASTATIN 10 MG TABLET PO SCH (21:48)
[2022-10-06] VITALS (7 sets, daily range): BP systolic 109–129; BP diastolic 52–71
[2022-10-06] MEDS: IPRATROPIUM NEB FS 0.5 MG/2.5 ML AMPUL.NEB NEB SCH ×4 (01:11→19:51)
--- NOTE | 2022-10-06 06:36 | NUR ---
CHURCH HISTORY TEACHER CLOSING NOTE PATIENT IN BED SLEEPING. PATIENT IS ALERT BUT X0 ORIENTATION. PATIENT IS MUMBLING. PATIENT IS ON O2 AT 2L/MIN VIA NASAL CANNULA, TOLERATING WELL. NO SOB NOTED. NOT IN ANY SIGN OF RESPIRATORY DISTRESS. KEPT HOB ELEVATED. ORAL SUCTIONING OCCASIONALLY NEEDED. SUCTIONED WHITE AND YELLOWISH SECRETION. PATIENT ON TELE CLIENT RELATIONS SPECIALIST WITH CURRENT READING OF SINUS RHYTHM, HR 84. NO SIGNS OF CARDIAC DISTRESS NOTED AT THIS TIME. IV ACCESS ON RIGHT HAND G#20 INTACT, AND PATENT WITH NS INFUSING AT 120ML/HR. PATIENT IS REPOSITIONED EVERY 2 HOURS OFFLOADING SACRAL AREA. ALL DUE MEDICATIONS GIVEN, ALL NEEDS ARE MET. PATIETN KEPT CLEAN AND COMFORTABLE. SIMENTAL CATH IN PLACE AND DRAINING WELL WITH CLEAR YELLOW URINE OUTPUT OF 700CC. NO COMPLAINS OF PAIN OR DISCOMFORT AT THE MOMENT. SAFETY MEASURES IN PLACE: BED IN LOWEST AND LOCKED POSITION, HOB ELEVATED, SIDE RAILS UP X3, BED ALARM ON, ON ASPIRATION PRECAUTION, AND CALL LIGHT WITHIN REACH. WILL ENDORSE TO NEXT SHIFT NURSE FOR CONTINUITY OF CARE.
[2022-10-06 07:08] LABS: BASOPHILS % (AUTO) 0.3 % (0.0-2.0); EOSINOPHILS % (AUTO) 1.3 % (0.0-6.0); HEMATOCRIT 24 % (33-45); HEMOGLOBIN 7.5 g/dL (11.5-14.8); LYMPHOCYTES # (AUTO) 1.4 K/uL (0.8-4.8); LYMPHOCYTES % (AUTO) 17.2 % (20.0-44.0); MEAN CORPUSCULAR HGB CONC 32 g/dl (31.0-36.0); MEAN CORPUSCULAR VOLUME 65 fL (82-100); MONOCYTES # (AUTO) 0.6 K/uL (0.1-1.30); MONOCYTES % (AUTO) 6.7 % (2.0-12.0); NEUTROPHILS # (AUTO) 6.2 K/uL (1.8-8.9); NEUTROPHILS % (AUTO) 74.5 % (43.0-81.0); PLATELET COUNT (AUTO) 198 K/uL (150-450); RED BLOOD CELL COUNT(AUTO) 3.69 MIL/uL (4.0-5.2); WHITE BLOOD COUNT (AUTO) 8.3 K/uL (4.3-11.0)
--- NOTE | 2022-10-06 07:15 | NUR ---
CAN WORKER OPENING NOTE RECEIVED PATIENT ASLEEP IN BED, AWAKENS TO TACTILE STIMULUS. PATIENT IS ON O2 AT 3L/MIN VIA NASAL CANNULA, TOLERATING WELL. NO SOB NOTED. NOT IN ANY SIGN OF RESPIRATORY DISTRESS. KEPT HOB ELEVATED. PATIENT ON TELE ACID SUPERVISOR WITH CURRENT READING OF SINUS RHYTHM, HR 80. NO SIGNS OF CARDIAC DISTRESS NOTED AT THIS TIME. IV ACCESS ON RIGHT HAND G#20 INTACT, AND PATENT WITH NS INFUSING AT 120ML/HR. SIMENTAL CATHETER IN PLACE AND DRAINING WELL. SAFETY MEASURES IN PLACE: BED IN LOWEST AND LOCKED POSITION, SIDE RAILS UP X3, BED ALARM ON, ON ASPIRATION PRECAUTION, AND CALL LIGHT WITHIN REACH.
[2022-10-06] MEDS: BLOOD SUGAR DIAGNOSTIC 1 EACH STRIP IN SCH ×4 (07:36→22:39)
[2022-10-06 07:42] LABS: CARBON DIOXIDE 22 mmol/L (21-32); CHLORIDE 110 mmol/L (98-107); POTASSIUM 2.9 mmol/L (3.5-5.1); SODIUM SERUM 144 mmol/L (136-145)
[2022-10-06 07:43] LABS: CALCIUM, SERUM 7.9 mg/dL (8.5-10.1); CREATININE 0.4 mg/dL (0.6-1.3); GLUCOSE 108 mg/dL (74-106); UREA NITROGEN, BLOOD 7 mg/dL (7-18)
[2022-10-06] MEDS: LACTOBACILLUS RHAMNOSUS GG 1 EACH CAP.SPRINK PO SCH (08:22)
[2022-10-06] MEDS: LINAGLIPTIN 5 MG TABLET PO SCH (08:23)
[2022-10-06] MEDS: CHOLECALCIFEROL 1,000 UNIT TABLET (VIT D3) PO SCH (08:23)
[2022-10-06] MEDS: DONEPEZIL 5 MG TABLET PO SCH (08:23)
[2022-10-06] MEDS: LEVOTHYROXINE SODIUM 88 MCG TABLET PO SCH (08:23)
[2022-10-06] MEDS: FOLIC ACID 1 MG TABLET PO SCH (08:23)
[2022-10-06] MEDS: MEMANTINE HCL 5 MG TABLET PO SCH ×2 (08:23→16:41)
[2022-10-06] MEDS: ASPIRIN 81 MG TAB.CHEW PO SCH (08:23)
[2022-10-06] MEDS: PANTOPRAZOLE 40 MG TABLET.DR PO SCH (08:23)
[2022-10-06] MEDS: CALCIUM CARB 600MG /VIT D 1 EACH TABLET PO SCH (08:23)
[2022-10-06] MEDS: VANCOMYCIN 500 MG in IV D5W 100 ML IV SCH ×2 (08:36→22:01)
[2022-10-06] MEDS ORDERED: POTASSIUM CHLORIDE 20 MEQ POWDER PACKET PO ONE ×2 (09:00→13:00)
[2022-10-06] MEDS: ACETYLCYSTEINE 10% SOLN 400 MG/4 ML VIAL NEB SCH ×3 (09:04→23:41)
[2022-10-06] MEDS: INSULIN REGULAR, HUMAN 100 UNIT/ML 3 ML VIAL SQ PRN (11:38)
--- NOTE | 2022-10-06 18:59 | NUR ---
PARISH VISITOR CLOSING NOTE PT AWAKE IN BED. PT IS ALERT BUT X0 ORIENTATION. PT MUMBLING AT TIMES. REORIENTED PT NEEDED. PATIENT IS ON O2 AT 1L/MIN VIA NASAL CANNULA, TOLERATING WELL. NO SOB NOTED. NOT IN ANY SIGN OF RESPIRATORY DISTRESS. KEPT HOB ELEVATED. PT ON TELE GLASS EMBOSSER WITH CURRENT READING OF SINUS TACHYCARDIA HR 119. NO SIGNS OF CARDIAC DISTRESS NOTED AT THIS TIME. IV ACCESS ON RIGHT HAND G#20 INTACT, AND PATENT. SIMENTAL CATH IN PLACE AND DRAINING WELL WITH OUTPUT OF 1000 ML. ALL NEEDS ATTENDED. KEPT CLEAN AND COMFORTABLE AT ALL TIMES. TURNED AND REPOSITIONED Q2HRS AND NEEDED. SAFETY MEASURES IN PLACE: BED IN LOWEST AND LOCKED POSITION, SIDE RAILS UP X3, BED ALARM ON, ON ASPIRATION PRECAUTION, AND CALL LIGHT WITHIN REACH. WILL ENDORSE TO QUARRYING MANAGER NURSE FOR YADI.
--- NOTE | 2022-10-06 19:30 | NUR ---
COMPLAINT INSPECTOR OPENING NOTE RECEIVED PATIENT AWAKE IN BED. PATIENT IS ALERT BUT X0 ORIENTATION. PATIENT IS MUMBLING. PATIENT IS ON O2 AT 2L/MIN VIA NASAL CANNULA, TOLERATING WELL. NO SOB NOTED. NOT IN ANY SIGN OF RESPIRATORY DISTRESS. KEPT HOB ELEVATED. PATIENT ON TELE PANTOGRAPH ENGRAVER WITH CURRENT READING OF SINUS TACHYCARDIA 119BPM. NO SIGNS OF CARDIAC DISTRESS NOTED AT THIS TIME. IV ACCESS ON RIGHT HAND G#20 INTACT, AND PATENT WITH NS INFUSING AT 120ML/HR. SIMENTAL CATH IN PLACE AND DRAINING WELL. SAFETY MEASURES IN PLACE: BED IN LOWEST AND LOCKED POSITION, SIDE RAILS UP X3, BED ALARM ON, ON ASPIRATION PRECAUTION, AND CALL LIGHT WITHIN REACH.
[2022-10-06] MEDS: CEFEPIME 1 GM in IV D5W 50 ML IV SCH (21:21)
[2022-10-06] MEDS: ENOXAPARIN SODIUM 40 MG/0.4 ML DISP.SYRIN SQ SCH (21:24)
[2022-10-06] MEDS: ATORVASTATIN 10 MG TABLET PO SCH (21:24)
--- NOTE | 2022-10-06 22:46 | NUR ---
RN NOTES PATIENT IV ACCESS ON RIGHT ARM IS INFILTRATED; COLD COMPRESS IS APPLIED. NEW IV ACCESS IS SECURED ON LEFT ARM GAUGE #22 SALINE LOCK NOTED TO BE FLUSHING WELL AND INTACT.
[2022-10-07] VITALS: BP 103/54
[2022-10-07] MEDS: IPRATROPIUM NEB FS 0.5 MG/2.5 ML AMPUL.NEB NEB SCH ×4 (01:44→20:20)
[2022-10-07 04:00] VITALS: BP 138/74
--- NOTE | 2022-10-07 05:29 | NUR ---
RN NOTE SACRAL AREA IS CLEANED AND APPLIED Z GUARD, COVERED WITH OPTIFOAM. MADE SURE DRESSING IS CLEAN AND INTACT FREE FROM BOWEL STAIN.
[2022-10-07 05:52] LABS: BASOPHILS % (AUTO) 0.6 % (0.0-2.0); EOSINOPHILS % (AUTO) 2.1 % (0.0-6.0); HEMATOCRIT 27 % (33-45); HEMOGLOBIN 8.3 g/dL (11.5-14.8); LYMPHOCYTES # (AUTO) 1.8 K/uL (0.8-4.8); LYMPHOCYTES % (AUTO) 26.5 % (20.0-44.0); MEAN CORPUSCULAR HGB CONC 31 g/dl (31.0-36.0); MEAN CORPUSCULAR VOLUME 65 fL (82-100); MONOCYTES # (AUTO) 0.5 K/uL (0.1-1.30); MONOCYTES % (AUTO) 6.7 % (2.0-12.0); NEUTROPHILS # (AUTO) 4.3 K/uL (1.8-8.9); NEUTROPHILS % (AUTO) 64.1 % (43.0-81.0); PLATELET COUNT (AUTO) 223 K/uL (150-450); RED BLOOD CELL COUNT(AUTO) 4.08 MIL/uL (4.0-5.2); WHITE BLOOD COUNT (AUTO) 6.7 K/uL (4.3-11.0)
[2022-10-07 06:22] LABS: CALCIUM, SERUM 8.5 mg/dL (8.5-10.1); CARBON DIOXIDE 25 mmol/L (21-32); CHLORIDE 111 mmol/L (98-107); CREATININE 0.5 mg/dL (0.6-1.3); GLUCOSE 114 mg/dL (74-106); POTASSIUM 3.6 mmol/L (3.5-5.1); SODIUM SERUM 145 mmol/L (136-145); UREA NITROGEN, BLOOD 6 mg/dL (7-18)
--- NOTE | 2022-10-07 06:36 | NUR ---
SERVICE PARTS DRIVER CLOSING NOTE PATIENT SLEEPING. EASILY AWAKEN WITH STIMULI. PATIENT IS BREATHING EVENLY AND UNLABORED. PATIENT IS A/OX0. PATIENT IS MUMBLING. PATIENT IS ON O2 AT 2L/MIN VIA NASAL CANNULA, TOLERATING WELL. NO SOB NOTED. NOT IN ANY SIGN OF RESPIRATORY DISTRESS. KEPT HOB ELEVATED. PATIENT ON TELE BIOINFORMATICS SCIENTIST WITH CURRENT READING OF SINUS TACHYCARDIA 101BPM. NO SIGNS OF CARDIAC DISTRESS NOTED AT THIS TIME. IV ACCESS ON LEFT HAND G#22 NOTED TO BE PATENT AND INTACT SALINE LOCK. SIMENTAL CATH IN PLACE AND DRAINING WELL OUTPUT OF CLEAR YELLOW URINE 400CC. ORAL SUCTION IS DONE WITH WHITE AND YELLOWISH SECRETION. ALL DUE MEDICATION IS GIVEN. MADE SURE PATIENT IS COMFORTABLE. KEPT PATIENT CLEAN. REPOSITIONED PATIENT EVERY 2 HOURS THROUGH OUT THE SHIFT. SAFETY MEASURES IN PLACEd: BED IS LOCK AND IN LOWEST POSITION SIDE RAILS UP X3, BED ALARM ON, ON ASPIRATION PRECAUTION, AND CALL LIGHT WITHIN REACH. WILL ENDORSE TO NEXT SHIFT NURSE FOR CONTINUITY OF CARE.
[2022-10-07 07:00] VITALS: BP 151/80
[2022-10-07] MEDS ORDERED: CEFEPIME 2 GM in IV D5W 50 ML IV SCH (07:30)
[2022-10-07] MEDS: ACETYLCYSTEINE 10% SOLN 400 MG/4 ML VIAL NEB SCH ×3 (07:31→23:24)
[2022-10-07] MEDS: BLOOD SUGAR DIAGNOSTIC 1 EACH STRIP IN SCH ×4 (07:31→22:26)
--- NOTE | 2022-10-07 07:45 | NUR ---
HIDE EXAMINER OPENING NOTES RECEIVED PATIENT AWAKE IN BED. PATIENT IS ALERT BUT X0 ORIENTATION. PATIENT IS ON O2 AT 2L/MIN VIA NASAL CANNULA, TOLERATING WELL. NO SOB NOTED. NO SIGNS OF RESPIRATORY DISTRESS. KEPT HOB ELEVATED. PATIENT ON TELE QUALITY ASSURANCE GROUP LEADER WITH CURRENT READING OF SINUS TACHYCARDIA 113 BPM. NO SIGNS OF CARDIAC DISTRESS NOTED AT THIS TIME. IV ACCESS ON RIGHT HAND G#20 INTACT, AND PATENT WITH NS INFUSING AT 120ML/HR. SIMENTAL CATH IN PLACE AND DRAINING WELL. SAFETY MEASURES IN PLACE. BED IN LOWEST AND LOCKED POSITION, SIDE RAILS UP X3, BED ALARM ON, ON ASPIRATION PRECAUTION, AND CALL LIGHT WITHIN REACH.
[2022-10-07] MEDS: LEVOTHYROXINE SODIUM 88 MCG TABLET PO SCH (07:48)
[2022-10-07] MEDS: PANTOPRAZOLE 40 MG TABLET.DR PO SCH (07:48)
[2022-10-07] MEDS: ASPIRIN 81 MG TAB.CHEW PO SCH (08:29)
[2022-10-07] MEDS: LACTOBACILLUS RHAMNOSUS GG 1 EACH CAP.SPRINK PO SCH (08:29)
[2022-10-07] MEDS: MEMANTINE HCL 5 MG TABLET PO SCH ×2 (08:29→16:20)
[2022-10-07] MEDS: CALCIUM CARB 600MG /VIT D 1 EACH TABLET PO SCH (08:30)
[2022-10-07] MEDS: LINAGLIPTIN 5 MG TABLET PO SCH (08:30)
[2022-10-07] MEDS: FOLIC ACID 1 MG TABLET PO SCH (08:30)
[2022-10-07] MEDS: CHOLECALCIFEROL 1,000 UNIT TABLET (VIT D3) PO SCH (08:30)
[2022-10-07] MEDS ORDERED: CEFEPIME 2 GM in IV D5W 100 ML IV SCH (09:00)
[2022-10-07] MEDS: INSULIN REGULAR, HUMAN 100 UNIT/ML 3 ML VIAL SQ PRN ×3 (11:42→22:22)
[2022-10-07 12:00] VITALS: BP 134/72
--- NOTE | 2022-10-07 15:49 | NUR ---
contacted regarding isolation due to quantiferon gold blood work. stated that there is no need for isolation.
[2022-10-07] MEDS: PROSOURCE / PROSTAT (PYXIS) 30 ML UDC GT SCH (16:19)
--- NOTE | 2022-10-07 16:52 | NUR ---
RECEIVED PATIENT ON 1LNC SATURATIONS AT 99%. ORDERED HHN TXS DENISE WELL WITH NO ADVERSE REACTION NOTED. NO SOB NOTED.
[2022-10-07 17:03] VITALS: BP 148/90
[2022-10-07] MEDS: GLUCERNA SHAKE 237 ML CAN PO SCH (17:36)
--- NOTE | 2022-10-07 18:37 | NUR ---
PATIENT SLEEPING. PATIENT IS BREATHING EVENLY AND UNLABORED. PATIENT IS A/OX0. PATIENT IS EASILY AWAKEN TO STIMULI. NO SOB NOTED. NO SIGNS OF RESPIRATORY DISTRESS. KEPT HOB ELEVATED. PATIENT ON TELE FILM PAINTER WITH CURRENT READING OF SINUS TACHYCARDIA 104BPM. NO SIGNS OF CARDIAC DISTRESS NOTED AT THIS TIME. IV ACCESS ON LEFT HAND G#22 NOTED. PATENT AND INTACT SALINE LOCK. SIMENTAL CATH IN PLACE AND DRAINING WELL, OUTPUT OF CLEAR YELLOW URINE 400CC. ALL DUE MEDICATION IS GIVEN. KEPT PATIENT CLEAN. SAFETY MEASURES IN PLACED. BED IS LOCK AND IN LOWEST POSITION, SIDE RAILS UP X3, BED ALARM ON, ON ASPIRATION PRECAUTION, AND CALL LIGHT WITHIN REACH. WILL ENDORSE TO NEXT SHIFT NURSE FOR CONTINUITY OF CARE.
--- NOTE | 2022-10-07 19:35 | NUR ---
CARBONATION EQUIPMENT TENDER OPENING NOTES: RECEIVED PATIENT AWAKE IN BED, ACCOMPANIED BY FAMILY BED IN LOW POSITION CALL LIGHTS WITHIN REACH, NO COMPLAIN OF PAIN AND DISCOMFORT AT THIS TIME, ON O2 INHALATION AT 3LPM SATURATING WELL, PATIENT IS A/O X1 NONE VERBAL MUMBLES. ON TELE MONITOR- SR 96 NO SYMPTOMS WAS OBSERVED ON SIMENTAL CATHETER-50CC URINE OUTPUT, IV LINE AT LAC#22SL, PATIENT KEPT CLEAN AND DRY ALL NEEDS MET WILL CONTINUE TO MONITOR.
[2022-10-07 20:00] VITALS: BP 152/80
[2022-10-07] MEDS: ATORVASTATIN 10 MG TABLET PO SCH (21:47)
[2022-10-07] MEDS: CEFEPIME 1 GM in IV D5W 50 ML IV SCH (21:47)
[2022-10-07] MEDS: ENOXAPARIN SODIUM 40 MG/0.4 ML DISP.SYRIN SQ SCH (21:49)
[2022-10-08] VITALS: BP 147/91
[2022-10-08] MEDS: IPRATROPIUM NEB FS 0.5 MG/2.5 ML AMPUL.NEB NEB SCH ×4 (02:24→19:59)
[2022-10-08 04:00] VITALS: BP 139/78
[2022-10-08 05:53] LABS: BASOPHILS % (AUTO) 0.2 % (0.0-2.0); EOSINOPHILS % (AUTO) 3.1 % (0.0-6.0); HEMATOCRIT 28 % (33-45); HEMOGLOBIN 8.9 g/dL (11.5-14.8); LYMPHOCYTES # (AUTO) 1.7 K/uL (0.8-4.8); LYMPHOCYTES % (AUTO) 32.1 % (20.0-44.0); MEAN CORPUSCULAR HGB CONC 32 g/dl (31.0-36.0); MEAN CORPUSCULAR VOLUME 65 fL (82-100); MONOCYTES # (AUTO) 0.4 K/uL (0.1-1.30); MONOCYTES % (AUTO) 6.6 % (2.0-12.0); NEUTROPHILS # (AUTO) 3.2 K/uL (1.8-8.9); PLATELET COUNT (AUTO) 254 K/uL (150-450); RED BLOOD CELL COUNT(AUTO) 4.35 MIL/uL (4.0-5.2); WHITE BLOOD COUNT (AUTO) 5.4 K/uL (4.3-11.0)
[2022-10-08 06:20] LABS: CALCIUM, SERUM 8.7 mg/dL (8.5-10.1); CARBON DIOXIDE 26 mmol/L (21-32); CHLORIDE 109 mmol/L (98-107); CREATININE 0.5 mg/dL (0.6-1.3); GLUCOSE 130 mg/dL (74-106); POTASSIUM 3.2 mmol/L (3.5-5.1); SODIUM SERUM 142 mmol/L (136-145); UREA NITROGEN, BLOOD 4 mg/dL (7-18)
--- NOTE | 2022-10-08 06:30 | NUR ---
RN NOTES: BLOOD SUGAR-121/ NO INSULIN GIVEN PER SLIDING SCALE.
--- NOTE | 2022-10-08 06:48 | NUR ---
NUT TIGHTENER CLOSING NOTES: PATIENT SLEEP IN BED COMFORTABLY, BED IN LOW POSITION CALL LIGHTS WITHIN REACH, NO COMPLAIN OF PAIN AND DISCOMFORT AT THIS TIME,ON O2 INHALATION AT 2LPM SATURATING WELL, HOB TO REMAIN AT 45 DEGREE, ON ASPIRATION PRECAUTION, PATIENT ON TELE [id number], ON SIMENTAL CATHETER- 250cc URINE OUTPUT, IV LINE AT [id number], PATIENT KEPT CLEAN AND DRY ALL NEEDS MET, ENDORSE TO INCOMING SHIFT.
[2022-10-08] MEDS: BLOOD SUGAR DIAGNOSTIC 1 EACH STRIP IN SCH ×4 (06:53→21:09)
[2022-10-08 07:00] VITALS: BP 136/77
[2022-10-08] MEDS: PANTOPRAZOLE 40 MG TABLET.DR PO SCH (07:05)
[2022-10-08] MEDS: ACETYLCYSTEINE 10% SOLN 400 MG/4 ML VIAL NEB SCH ×4 (07:35→23:51)
--- NOTE | 2022-10-08 08:23 | NUR ---
RN OPENING NOTE RECEIVED PATIENT IN BED, AWAKE. WITH FAMILY ON BEDSIDE. SKIN IS WARM TO TOUCH KEEP CLEAN/DRY. RESPIRATORY EVEN AND UNLABORED IN ROOM AIR. KEPT ELEVATED HOB FOR ENSURE AIRWAY/ASPIRATION PRECAUTION, SAFETY MEASURE IN PLACED; BED IS LOCK AND IN LOWEST POSITION. BED ALARM IS ON AT ALL THE TIME FOR SAFETY. CALL LIGHT WITHIN REACH. Addendum: 10/08/22 at 0826 by ORESTES BOND RN ERROR
--- NOTE | 2022-10-08 08:26 | NUR ---
RN OPENING NOTE RECEIVED PATIENT IN BED, AO X 1. SKIN IS WARM TO TOUCH KEEP CLEAN/DRY. RESPIRATORY EVEN AND UNLABORED IN ROOM AIR. KEPT ELEVATED HOB FOR ENSURE AIRWAY/ASPIRATION PRECAUTION, SAFETY MEASURE IN PLACED; BED IS LOCK AND IN LOWEST POSITION. BED ALARM IS ON AT ALL THE TIME FOR SAFETY. CALL LIGHT WITHIN REACH.
[2022-10-08] MEDS: PROSOURCE / PROSTAT (PYXIS) 30 ML UDC GT SCH ×2 (08:49→17:04)
[2022-10-08] MEDS: CHOLECALCIFEROL 1,000 UNIT TABLET (VIT D3) PO SCH (08:50)
[2022-10-08] MEDS: FOLIC ACID 1 MG TABLET PO SCH (08:50)
[2022-10-08] MEDS: MEMANTINE HCL 5 MG TABLET PO SCH ×2 (08:50→17:08)
[2022-10-08] MEDS: ASPIRIN 81 MG TAB.CHEW PO SCH (08:50)
[2022-10-08] MEDS: LACTOBACILLUS RHAMNOSUS GG 1 EACH CAP.SPRINK PO SCH (08:50)
[2022-10-08] MEDS: LINAGLIPTIN 5 MG TABLET PO SCH (08:50)
[2022-10-08] MEDS: CALCIUM CARB 600MG /VIT D 1 EACH TABLET PO SCH (08:50)
[2022-10-08] MEDS: LEVOTHYROXINE SODIUM 88 MCG TABLET PO SCH (08:52)
[2022-10-08] MEDS: GLUCERNA SHAKE 237 ML CAN PO SCH ×2 (08:52→17:04)
[2022-10-08] MEDS: CEFEPIME 1 GM in IV D5W 50 ML IV SCH ×2 (08:55→21:08)
[2022-10-08 12:00] VITALS: BP 129/69
[2022-10-08] MEDS: INSULIN REGULAR, HUMAN 100 UNIT/ML 3 ML VIAL SQ PRN ×2 (12:01→21:41)
[2022-10-08] MEDS: POTASSIUM CHLORIDE 20 MEQ TAB.PRT.SR PO SCH ×2 (12:06→13:03)
[2022-10-08 16:00] VITALS: BP 131/76
--- NOTE | 2022-10-08 18:35 | NUR ---
RN CLOSING NOTE PATIENT RESTING IN BED. NON VERBAL DURING THE SHIFT. RESPIRATORY EVEN AND UNLABORED IN ROOM AIR, IN NO ACUTE RESPIRATORY DISTRESS OBSERVED. SKIN IS WARM TO TOUCH KEEP CLEAN/DRY. KEPT LOWEST BED POSITION. BED ALARM IS ON AT ALL TIMES FOR SAFETY. CALL LIGHT WITHIN REACH, WILL ENDORSE FLOW COORDINATOR.
--- NOTE | 2022-10-08 19:35 | NUR ---
TANNING SALON ATTENDANT OPENING NOTE PATIENT SLEEPING IN BED, PATIENT OPENS EYES TO TACTILE STIMULI, NON-VERBAL/MUMBLES WORDS. PATIENT ON RA, NO S/S OF DISTRESS OR SOB NOTED, BREATHING EVEN AND UNLABORED. PATIENT ON EXTERNAL CUSTOM LEATHER PRODUCTS MAKER READING SINUS RHYTHM, HR: 91. IV ACCESS ON LAC #22G INTACT AND SALINE LOCKED. SIMENTAL CATHETER IN PLACE AND DRAINING YELLOW URINE BY GRAVITY. SAFETY MEASURES IN PLACE: CALL LIGHT WITHIN REACH, SIDE RAILS UP X 3, BED LOCKED IN LOWEST POSITION, HOB ELEVATED > 40 DEGREES, BED ALARM ON. WILL CONTINUE TO MONITOR PATIENT
[2022-10-08 20:00] VITALS: BP 129/71
[2022-10-08] MEDS: ATORVASTATIN 10 MG TABLET PO SCH ×2 (21:08→22:00)
[2022-10-08] MEDS: ENOXAPARIN SODIUM 40 MG/0.4 ML DISP.SYRIN SQ SCH (21:16)
--- NOTE | 2022-10-08 21:41 | NUR ---
SANITATION OFFICER NOTE PATIENT OPENS EYES WITH TACTILE STIMULI HOWEVER GOES RIGHT BACK TO SLEEP, DID NOT ADMINISTER INSULIN PER SLIDING SCALE BECAUSE PATIENT TO LETHARGIC FOR PO INTAKE AND DON'T WANT BLOOD SUGAR TO DROP TOO MUCH. WILL CONTINUE TO MONITOR Addendum: 10/08/22 at 2220 by JOSEFINA JEFFERSON RN UNABLE TO GIVE LIPITOR 20 MG FOR THIS REASON WELL, WASTED MED
[2022-10-09] VITALS: BP 132/71
[2022-10-09] MEDS: IPRATROPIUM NEB FS 0.5 MG/2.5 ML AMPUL.NEB NEB SCH ×4 (01:34→20:00)
[2022-10-09 04:00] VITALS: BP 144/70
[2022-10-09 06:13] LABS: BASOPHILS # (AUTO) 0.1 K/uL (0.0-0.2); BASOPHILS % (AUTO) 1.3 % (0.0-2.0); EOSINOPHILS % (AUTO) 4.2 % (0.0-6.0); HEMATOCRIT 29 % (33-45); HEMOGLOBIN 9.1 g/dL (11.5-14.8); LYMPHOCYTES # (AUTO) 1.5 K/uL (0.8-4.8); MEAN CORPUSCULAR HGB CONC 31 g/dl (31.0-36.0); MEAN CORPUSCULAR VOLUME 65 fL (82-100); MONOCYTES # (AUTO) 0.4 K/uL (0.1-1.30); MONOCYTES % (AUTO) 7.6 % (2.0-12.0); NEUTROPHILS # (AUTO) 2.8 K/uL (1.8-8.9); NEUTROPHILS % (AUTO) 55.9 % (43.0-81.0); PLATELET COUNT (AUTO) 301 K/uL (150-450); RED BLOOD CELL COUNT(AUTO) 4.49 MIL/uL (4.0-5.2)
[2022-10-09] MEDS: PANTOPRAZOLE 40 MG TABLET.DR PO SCH (06:34)
[2022-10-09] MEDS: LEVOTHYROXINE SODIUM 88 MCG TABLET PO SCH (06:34)
[2022-10-09] MEDS: BLOOD SUGAR DIAGNOSTIC 1 EACH STRIP IN SCH ×4 (06:35→21:40)
[2022-10-09] MEDS: INSULIN REGULAR, HUMAN 100 UNIT/ML 3 ML VIAL SQ PRN ×4 (06:38→21:40)
--- NOTE | 2022-10-09 06:53 | NUR ---
TURNING MACHINE SET UP OPERATOR OPENING NOTE PATIENT AWAKE IN BED, NON-VERBAL, A/O X 0-1. PATIENT STABLE ON RA, NO S/S OF DISTRESS OR SOB NOTED, BREATHING EVEN AND UNLABORED. PATIENT ON EXTERNAL NEON ELECTRICIAN READING SINUS RHYTHM, HR: 88. SIMENTAL CATH IN PLACE WITH 500 ML OUTPUT OF YELLOW URINE. IV ACCESS ON LAC #22G INTACT AND SALINE LOCKED. MEDICATIONS GIVEN ORDERED, PT NEEDS MET THROUGHOUT SHIFT, PT TURNED AND REPOSITIONED, FED PATIENT APPLE SAUCE THIS AM AND GAVE 2 UNITS PER SLIDING SCALE, BS 136. SAFETY MEASURES IN PLACE: CALL LIGHT WITHIN REACH, SIDE RAILS UP X 3, BED LOCKED IN LOWEST POSITION, HOB ELEVATED > 40 DEGREES. WILL ENDORSE TO DAYSHIFT RN FOR CONTINUITY OF CARE
[2022-10-09 07:07] LABS: CALCIUM, SERUM 9.2 mg/dL (8.5-10.1); CARBON DIOXIDE 25 mmol/L (21-32); CHLORIDE 108 mmol/L (98-107); CREATININE 0.5 mg/dL (0.6-1.3); GLUCOSE 143 mg/dL (74-106); POTASSIUM 3.9 mmol/L (3.5-5.1); SODIUM SERUM 143 mmol/L (136-145); UREA NITROGEN, BLOOD 14 mg/dL (7-18)
[2022-10-09] MEDS: ACETYLCYSTEINE 10% SOLN 400 MG/4 ML VIAL NEB SCH ×3 (07:13→23:21)
--- NOTE | 2022-10-09 07:36 | NUR ---
RN OPENING NOTE PATIENT IN BED, AO X 1. SKIN IS WARM TO TOUCH KEEP CLEAN/DRY. RESPIRATORY EVEN AND UNLABORED IN ROOM AIR, IN NO RESPIRATORY DISTRESS OBSERVED. KEPT ELEVATED HOB FOR ENSURE AIRWAY/ASPIRATION PRECAUTION, SAFETY MEASURE IN PLACED; BED IS LOCK AND IN LOWEST POSITION. BED ALARM IS ON AT ALL TIMES FOR SAFETY. CALL LIGHT WITHIN REACH.
[2022-10-09] MEDS: CEFEPIME 1 GM in IV D5W 50 ML IV SCH ×2 (08:07→21:28)
[2022-10-09] MEDS: PROSOURCE / PROSTAT (PYXIS) 30 ML UDC GT SCH ×2 (08:07→17:02)
[2022-10-09] MEDS: LACTOBACILLUS RHAMNOSUS GG 1 EACH CAP.SPRINK PO SCH (08:08)
[2022-10-09] MEDS: MEMANTINE HCL 5 MG TABLET PO SCH ×2 (08:08→17:02)
[2022-10-09] MEDS: CHOLECALCIFEROL 1,000 UNIT TABLET (VIT D3) PO SCH (08:08)
[2022-10-09] MEDS: FOLIC ACID 1 MG TABLET PO SCH (08:08)
[2022-10-09] MEDS: CALCIUM CARB 600MG /VIT D 1 EACH TABLET PO SCH (08:08)
[2022-10-09] MEDS: LINAGLIPTIN 5 MG TABLET PO SCH (08:09)
[2022-10-09] MEDS: ASPIRIN 81 MG TAB.CHEW PO SCH (08:09)
[2022-10-09] MEDS: GLUCERNA SHAKE 237 ML CAN PO SCH ×2 (08:09→17:02)
[2022-10-09 09:37] VITALS: BP 128/77
--- NOTE | 2022-10-09 11:20 | NUR ---
PATIENT RECIEVED D[facility] HILARIO/ SHRUTHI STATED THE PATIENT IS NOT TOLERATING HER FOOD, SHE HEARS A "GURGLING SOUND" AND THEN SHE VOMITED. DTR IS REQUESTING FOR A VIDEO SWALLOW STUDY. DTR CONFIRMED PATIENT IS REFUSING PEG TUBE ON HER POLST FORM. CM CALLED BARB MERRILL DNP AND RELAYED CONCERNS, HE CANCELLED THE DISCHARGE ORDER.
[2022-10-09 12:00] VITALS: BP 136/83
--- NOTE | 2022-10-09 15:54 | NUR ---
RECEIVED PATIENT ON ROOM AIR SATURATIONS AT 96-99%. ORDERED HHN TXS DENISE WELL WITH NO ADVERSE REACTION NOTED. NO SOB NOTED.
[2022-10-09 16:20] VITALS: BP 134/84
--- NOTE | 2022-10-09 18:06 | NUR ---
RN CLOSING NOTE PATIENT IN BED RESTING. REMAINS AO X 1, NON VERBAL DURING THE SHIFT. ABLE TO RESPONDS ALL STIMULI. RESPIRATORY EVEN AND UNLABORED IN ROOM AIR, IN NO ACUTE RESPIRATORY DISTRESS OBSERVED. PATIENT CONSUMED 75% AT LUNCH WITHOUT COUGHING OR CHOKING. SKIN IS WARM TO TOUCH KEEP CLEAN/DRY. KEPT ELEVATED HOB FOR ASPIRATION PRECAUTION AND ENSURE AIR WAY, AND BED ALARM IS ON AT ALL TIMES. CALL LIGHT WITHIN REACH, WILL ENDORSE UNION CARPENTER.
--- NOTE | 2022-10-09 19:45 | NUR ---
SIGHT EFFECTS SPECIALIST OPENING NOTE RECEIVED PATIENT SLEEPING IN BED, PATIENT OPENS EYES TO TACTILE STIMULI, NON-VERBAL. PATIENT ON RA, NO S/S OF DISTRESS OR SOB NOTED, BREATHING EVEN AND UNLABORED. ON EXTERNAL PERSONNEL RECRUITER READING SINUS RHYTHM, HR: 97. IV ACCESS TO LEFT AC #22G INTACT AND SALINE LOCKED. SIMENTAL CATHETER IN PLACE AND DRAINING YELLOW URINE BY GRAVITY. SAFETY MEASURES IN PLACE: CALL LIGHT WITHIN REACH, SIDE RAILS UP X 3, BED LOCKED IN LOWEST POSITION, HOB ELEVATED > 40 DEGREES, BED ALARM ON. WILL CONTINUE TO MONITOR PATIENT.
[2022-10-09 20:08] VITALS: BP 106/61
--- NOTE | 2022-10-09 21:00 | NUR ---
CLERK OF WORKS NOTE PT'S IV IS DISLODGED. NEW IV ACCESS IS INSERTED TO RIGHT HAND #22G.
[2022-10-09] MEDS: ATORVASTATIN 10 MG TABLET PO SCH (21:28)
[2022-10-09] MEDS: ENOXAPARIN SODIUM 40 MG/0.4 ML DISP.SYRIN SQ SCH (21:38)
[2022-10-10 00:07] VITALS: BP 141/71
[2022-10-10] MEDS: IPRATROPIUM NEB FS 0.5 MG/2.5 ML AMPUL.NEB NEB SCH ×3 (01:52→12:32)
[2022-10-10 04:35] VITALS: BP 136/78
[2022-10-10 06:07] LABS: BASOPHILS # (AUTO) 0.1 K/uL (0.0-0.2); BASOPHILS % (AUTO) 0.9 % (0.0-2.0); EOSINOPHILS % (AUTO) 5.1 % (0.0-6.0); HEMATOCRIT 29 % (33-45); HEMOGLOBIN 8.9 g/dL (11.5-14.8); LYMPHOCYTES # (AUTO) 1.7 K/uL (0.8-4.8); LYMPHOCYTES % (AUTO) 30.1 % (20.0-44.0); MEAN CORPUSCULAR HGB CONC 31 g/dl (31.0-36.0); MEAN CORPUSCULAR VOLUME 66 fL (82-100); MONOCYTES # (AUTO) 0.5 K/uL (0.1-1.30); MONOCYTES % (AUTO) 8.6 % (2.0-12.0); NEUTROPHILS # (AUTO) 3.1 K/uL (1.8-8.9); NEUTROPHILS % (AUTO) 55.3 % (43.0-81.0); PLATELET COUNT (AUTO) 283 K/uL (150-450); RED BLOOD CELL COUNT(AUTO) 4.32 MIL/uL (4.0-5.2); WHITE BLOOD COUNT (AUTO) 5.6 K/uL (4.3-11.0)
[2022-10-10] MEDS: INSULIN REGULAR, HUMAN 100 UNIT/ML 3 ML VIAL SQ PRN ×2 (06:30→11:34)
[2022-10-10] MEDS: BLOOD SUGAR DIAGNOSTIC 1 EACH STRIP IN SCH ×2 (06:32→11:33)
[2022-10-10 06:38] LABS: CALCIUM, SERUM 8.9 mg/dL (8.5-10.1); CARBON DIOXIDE 27 mmol/L (21-32); CHLORIDE 108 mmol/L (98-107); CREATININE 0.4 mg/dL (0.6-1.3); GLUCOSE 135 mg/dL (74-106); POTASSIUM 3.3 mmol/L (3.5-5.1); SODIUM SERUM 141 mmol/L (136-145); UREA NITROGEN, BLOOD 17 mg/dL (7-18)
--- NOTE | 2022-10-10 06:50 | NUR ---
BREADMAN CLOSING NOTE LEFT PATIENT SLEEPING IN BED, PATIENT OPENS EYES TO TACTILE STIMULI, NON-VERBAL. PATIENT ON RA, NO S/S OF DISTRESS OR SOB NOTED, BREATHING EVEN AND UNLABORED. ON EXTERNAL GENERAL DENTIST READING SINUS RHYTHM, HR: 97. IV ACCESS TO LEFT AC #22G INTACT AND SALINE LOCKED. SIMENTAL CATHETER IN PLACE AND DRAINING YELLOW URINE BY GRAVITY. SAFETY MEASURES IN PLACE: CALL LIGHT WITHIN REACH, SIDE RAILS UP X 3, BED LOCKED IN LOWEST POSITION, HOB ELEVATED > 40 DEGREES, BED ALARM ON. WILL ENDORSE PT TO AM SHIFT NURSE FOR YADI.
[2022-10-10] MEDS: PANTOPRAZOLE 40 MG TABLET.DR PO SCH ×2 (07:00→07:40)
--- NOTE | 2022-10-10 07:06 | NUR ---
WRAPPER LEAF INSPECTOR OPENING NOTES RECEIVED PATIENT SLEEPING IN BED, A/Ox1, RESPONDS TO NAME AND TACTILE STIMULI. ON ROOM AIR, NO S/S OF RESPIRATORY DISTRESS. ON TELE MONITORING SHOWING SINUS RHYTHM HR 84, NO S/S OF REPARATORY DISTRESS. IV ACCESS R HAND #22 G S/L. INTACT AND PATENT. ON BED REST, HAS FC DRAINING YELLOW URINE. SKIN ISSUES: SACRAL DTI. SAFETY MEASURES IN PLACE: BED LOCKED AND IN LOWEST POSITION, HOB ELEVATED, CALL LIGHT WITHIN REACH, SIDE RAILS UPx2. WILL CONTINUE TO MONITOR.
[2022-10-10] MEDS: LEVOTHYROXINE SODIUM 88 MCG TABLET PO SCH ×2 (07:30→07:40)
[2022-10-10] MEDS: ACETYLCYSTEINE 10% SOLN 400 MG/4 ML VIAL NEB SCH (07:53)
[2022-10-10 08:00] VITALS: BP 117/66
[2022-10-10] MEDS: GLUCERNA SHAKE 237 ML CAN PO SCH (08:00)
[2022-10-10] MEDS: PROSOURCE / PROSTAT (PYXIS) 30 ML UDC GT SCH (08:00)
[2022-10-10] MEDS: MEMANTINE HCL 5 MG TABLET PO SCH (08:36)
[2022-10-10] MEDS: CALCIUM CARB 600MG /VIT D 1 EACH TABLET PO SCH (08:36)
[2022-10-10] MEDS: LINAGLIPTIN 5 MG TABLET PO SCH (08:36)
[2022-10-10] MEDS: FOLIC ACID 1 MG TABLET PO SCH (08:36)
[2022-10-10] MEDS: LACTOBACILLUS RHAMNOSUS GG 1 EACH CAP.SPRINK PO SCH (08:36)
[2022-10-10] MEDS: CHOLECALCIFEROL 1,000 UNIT TABLET (VIT D3) PO SCH (08:36)
[2022-10-10] MEDS: ASPIRIN 81 MG TAB.CHEW PO SCH (08:36)
--- NOTE | 2022-10-10 08:50 | NUR ---
RN NOTES PATIENT IS PENDING ST EVAL, PER MD TO HOLD MEDICATIONS UNTIL EVAL IS COMPLETED. WILL CONTINUE TO MONITOR.
[2022-10-10] MEDS: POTASSIUM CL. PREMIX PERIPHER. 50 ML IV SCH ×2 (09:57→11:15)
[2022-10-10] MEDS ORDERED: POTASSIUM CHLORIDE 20 MEQ TAB.PRT.SR PO SCH (10:00)
--- NOTE | 2022-10-10 11:34 | NUR ---
RN NOTES PATIENT IS PENDING ST EVAL AND VIDEO, NO INSULIN COVERAGE GIVEN PATIENT IS NOT EATING
[2022-10-10 12:00] VITALS: BP 139/98
--- NOTE | 2022-10-10 13:00 | NUR ---
RN NOTES ST EVAL COMPLETED, CLEARED TO EAT, FED PATIENT MUCH TOLERATED. WILL CONTINUE TO MONITOR.
--- NOTE | 2022-10-10 16:48 | NUR ---
RIGHT OF WAY BUYER NOTES PATIENT DISCHARGE TO SNF, REPORT GIVEN TO NY RYAN. STABLE ON ROOM AIR, NO S/S OF RESPIRATORY DISTRESS. PATIENT IV ACCESS REMOVED, PRESSURE DRESSING APPLIED, ID BAND REMOVED. PATIENT UNABLE TO COMPREHEND DISCHARGE INSTRUCTIONS. PHOTOS OF SKIN TAKEN LAST NIGHT FILED INTO CHART. BELONGINGS GATHERED AND FORMS SIGNED. PATIENT LEFT UNIT @15:25 ACCOMPANIED BY TWO supervisor vat house. CHARGE NURSE AND MD AWARE OF DISCHARGE.
== END 2022-10-10 15:24 | DRG 871 ==
LOC: ER 20:56 → TELE 23:10
PROVIDERS: ADMIT Nurse Practitioner Acute Care; ATTEND Nurse Practitioner Acute Care
DX: A41.9 Sepsis, unspecified organism (principal); G92.8 Other toxic encephalopathy; J69.0 Pneumonitis due to inhalation of food and vomit; J96.01 Acute respiratory failure with hypoxia; N39.0 Urinary tract infection, site not specified; D68.59 Other primary thrombophilia; F02.83 Dementia in other diseases classified elsewhere, unspecified severity, with mood disturbance; I13.0 Hypertensive heart and chronic kidney disease with heart failure and stage 1 through stage 4 chronic kidney disease, or unspecified chronic kidney disease; I50.30 Unspecified diastolic (congestive) heart failure; E87.20 Acidosis, unspecified; G30.9 Alzheimer's disease, unspecified; N18.9 Chronic kidney disease, unspecified; D63.8 Anemia in other chronic diseases classified elsewhere; Z20.822 Contact with and (suspected) exposure to COVID-19; E03.9 Hypothyroidism, unspecified; E11.22 Type 2 diabetes mellitus with diabetic chronic kidney disease; E78.5 Hyperlipidemia, unspecified; K21.9 Gastro-esophageal reflux disease without esophagitis; Z79.4 Long term (current) use of insulin; Z79.84 Long term (current) use of oral hypoglycemic drugs; Z79.82 Long term (current) use of aspirin; Z79.899 Other long term (current) drug therapy; B96.89 Other specified bacterial agents as the cause of diseases classified elsewhere; R13.10 Dysphagia, unspecified; Z66 Do not resuscitate; Z87.440 Personal history of urinary (tract) infections; F32.9 Major depressive disorder, single episode, unspecified; Z74.09 Other reduced mobility; E83.42 Hypomagnesemia; B96.20 Unspecified Escherichia coli [E. coli] as the cause of diseases classified elsewhere; E87.6 Hypokalemia; R91.1 Solitary pulmonary nodule
CPT/HCPCS: 36415; 36600; 71045-TC; 71250-TC; 80048-TC; 80076-TC; 80202-TC; 81001; 82272-TC; 82962-TC; 83605-TC; 83735-TC; 83880; 84100-TC; 84484-TC; 85025-TC; 85378-TC; 85730-TC; 86480; 86803; 87040-TC; 87081-TC; 87086-TC; 87806; 92526; 92611-TC; 94799-TC; 97112-TC; 97116-TC; 97530-TC; A4217; A4223; G0378; J0692; J1650; J1815; J3370; J3475; J3480; J7030; J7050; J7060; Q9967

== ENCOUNTER 2022-10-16 17:42 | Inpatient (IN) | payer MEDICARE, OTHER ==
[~2022-10-16] VITALS: Ht 167.6 cm; Wt 44.9 kg
[~2022-10-16 17:42] MED LIST changes: +ACET-2605 PO; +ACET-868 PO; -CALC-1029 PO; -CEPH500C2 PO; -CHOL100062 PO; -CRAN3875 PO; -CYAN250010 PO; -DENO60DI SQ; +DEXT50DI8 IV; -DONE10TA44 PO; -EPOE40003 SQ; -FOLI1TAB94 PO; -LACT1CAP25 PO; +MAGN400T26 PO; +ONDA4TAB5 PO
--- NOTE | 2022-10-16 17:48 | NUR ---
GAYATRI FROM [facility] FOR DESATURATION. 80% RA. 94%NRB ON ARRIVAL. PT IS DNR WITH SELECTIVE TREATMENT. PT PLACED IN BED AND CONNECTED TO MONITOR, AWAITING MD HENRIQUEZ.
--- NOTE | 2022-10-16 17:50 | NUR ---
AT BEDSIDE FOR EVAL
[2022-10-16] MEDS ORDERED: IV NS 0.9% 500 ML BAG IV ONE (18:00)
--- NOTE | 2022-10-16 18:10 | NUR ---
MOVE SHEET SUBMITTED.
[2022-10-16 18:12] LABS: ABG BASE EXCESS -3.3 mmol/L; ABG PCO2 37.1 mmHg (35.0-45.0); ABG PH 7.378 (7.350-7.450); ABG PO2 65.7 mmHg (75.0-100.0); COHb 0.3 % (0.5-1.5); MetHb 0.4 % (0.0-1.5); O2Hb 90.8 % (94.0-97.0); SITE, ABG Left Radial; VENT MODE, BG 15 LPM NRB
--- NOTE | 2022-10-16 18:15 | NUR ---
established iv line 20 g at right ac , and left hand 20g
--- NOTE | 2022-10-16 18:20 | NUR ---
BLOOD / URINE / COVID SAMPLE TAKEN SENT TO LAB
[2022-10-16 18:27] LABS: BASOPHILS % (AUTO) 0.3 % (0.0-2.0); HEMATOCRIT 34 % (33-45); HEMOGLOBIN 10.2 g/dL (11.5-14.8); LYMPHOCYTES # (AUTO) 0.7 K/uL (0.8-4.8); LYMPHOCYTES % (AUTO) 5.3 % (20.0-44.0); MEAN CORPUSCULAR HGB CONC 30 g/dl (31.0-36.0); MEAN CORPUSCULAR VOLUME 67 fL (82-100); MONOCYTES # (AUTO) 0.3 K/uL (0.1-1.30); MONOCYTES % (AUTO) 1.8 % (2.0-12.0); NEUTROPHILS # (AUTO) 12.9 K/uL (1.8-8.9); NEUTROPHILS % (AUTO) 92.6 % (43.0-81.0); PLATELET COUNT (AUTO) 435 K/uL (150-450); RED BLOOD CELL COUNT(AUTO) 5.08 MIL/uL (4.0-5.2); WHITE BLOOD COUNT (AUTO) 13.9 K/uL (4.3-11.0)
--- NOTE | 2022-10-16 18:55 | NUR ---
PT TAKEN TO CT VIA MEHREEN
[2022-10-16] MEDS ORDERED: CRAN3875 PO (18:57)
[2022-10-16 18:58] LABS: ALANINE AMINOTRANSFERASE 14 U/L (12-78); ALBUMIN 3.6 g/dL (3.4-5.0); ALKALINE PHOSPHATASE 64 U/L (46-116); ASPARTATE AMINOTRANSFERASE 14 U/L (15-37); BILIRUBIN,DIRECT 0.2 mg/dL (0.0-0.2); BILIRUBIN,TOTAL 0.5 mg/dL (0.2-1.0); CALCIUM, SERUM 9.2 mg/dL (8.5-10.1); CARBON DIOXIDE 23 mmol/L (21-32); CHLORIDE 106 mmol/L (98-107); CREATININE 0.9 mg/dL (0.6-1.3); GLUCOSE 245 mg/dL (74-106); POTASSIUM 3.5 mmol/L (3.5-5.1); SODIUM SERUM 143 mmol/L (136-145); TOTAL PROTEIN, SERUM 7.4 g/dL (6.4-8.2); UREA NITROGEN, BLOOD 15 mg/dL (7-18)
[2022-10-16 19:26] LABS: BILIRUBIN,URINE NEGATIVE (NEGATIVE); COLOR,URINE YELLOW (YELLOW); LEUKOCYTE ESTERASE ,URINE NEGATIVE (NEGATIVE); NITRITE, URINE NEGATIVE (NEGATIVE); PROTEIN,URINE NEGATIVE (NEGATIVE); UGLUCOSE NEGATIVE (NEGATIVE); UROBILINOGEN,URINE 0.2 EU/dL (0.2)
[2022-10-16] MEDS ORDERED: VANCOMYCIN HCL 1.25 GM in IV D5W 260 ML IV ONE (19:30)
[2022-10-16] MEDS ORDERED: PIPERACILLIN /TAZOBACTAM 2.25 G in IV D5W 50 ML IV ONE (19:30)
[2022-10-16 19:32] LABS: BACTERIA,URINE None seen /HPF (None Seen); MUCUS,URINE Moderate /LPF (None Seen); RBC,URINE 0-2 /HPF (0-2); SQUAMOUS EPITHELIAL CELL,UR 0-2 /HPF (None Seen); WBC,URINE 0-2 /HPF (0-3)
[2022-10-16 19:35] LABS: BAND % (MANUAL) 13 % (0.0-5.0); LYMPHOCYTES % (MANUAL) 6 % (16-48); MONOCYTES % (MANUAL) 1 % (0-11.0); NEUTROPHILS % (MANUAL) 80 (42-76)
[2022-10-16] MEDS ORDERED: IV NS 0.9% 250 ML IV ONE (20:10)
[2022-10-16] MEDS ORDERED: IOHEXOL-350 100 ML VIAL IV ONE (20:10)
[2022-10-16] MEDS ORDERED: CT SWABBABLE VALVE TRANS SET 1 EA INFUS.SET MC ONE (20:10)
[2022-10-16] MEDS ORDERED: Magnesium 1GM/D5W 100ML PREMIX 200 ML IV ONE (20:38)
[2022-10-16] MEDS: Magnesium 1GM/D5W 100ML PREMIX 100 ML IV SCH ×2 (20:59→22:00)
--- NOTE | 2022-10-16 21:03 | NUR ---
INFECTIOUS DISEASE BULK INTAKE WORKER AT PT'S BEDSIDE TALKING TO FAMILY
[2022-10-16] MEDS ORDERED: IV NS 0.9% 1,000 ML IV ONE (22:00)
--- NOTE | 2022-10-16 22:34 | NUR ---
REPORT GIVEN TO NAZIA ALEJANDAR FOR CONTINUATION OF CARE.
[2022-10-16 23:00] VITALS: BP 110/67
[2022-10-16] MEDS ORDERED: Z GUARD REMEDY 4 OZ OINT TP PRN (23:00)
[2022-10-16] MEDS ORDERED: MORPHINE SULFATE INJ 2 MG/ML DISP.SYRIN IV PRN (23:00)
[2022-10-16] MEDS ORDERED: ONDANSETRON HCL/PF 4 MG/2 ML VIAL IVP PRN (23:00)
[2022-10-16] MEDS ORDERED: DEXTROSE 50%-WATER 50 ML DISP.SYRIN IV PRN (23:00)
[2022-10-16] MEDS ORDERED: IV NS 0.9% 1,000 ML IV PRN (23:00)
--- NOTE | 2022-10-16 23:00 | NUR ---
PT TRANSFERRED TO [facility] VIA ACLS PROTOCOL. FAMILY AWARE.
--- NOTE | 2022-10-16 23:30 | NUR ---
AIR BOX TESTER ADMITTING NOTE PATIENT WAS TRANSFERRED FROM ER TO 117 -2 AT 2300H, PATIENT IS A/O X 0, UNABLE TO RESPOND TO SIMPLE COMMANDS, RESPONSIVE TO LOCALIZED PAIN; STABLE ON NON REBREATHING MASK SATURATING AT 97-100%; WITH IV ACCESS ON LEFT HAND G#20, SALINE LOCK; HOOKED TO SWABBER CURRENTLY READING SINUS RHYTHM; WITH SIMENTAL CATHETER IN PLACE DRAINING TO YELLOW COLORED URINE VIA GRAVITY; VITAL SIGNS TAKEN AND RECORDED; PATIENT'S BELONGINGS ACCOUNTED FOR; SKIN ASSESSMENT WAS DONE AND NOTED SACRAL WOUND AND RIGHT UPPER ABDOMEN ABRASION, PHOTOGRAPHED AND INSERTED INTO CHART; SAFETY MEASURES IMPLEMENTED, BED IN LOW AND LOCKED POSITION, SIDE RAILS UP X 4, BED ALARM ON; WILL CONTINUE TO MONITOR THROUGHOUT SHIFT
[2022-10-16] MEDS: ACETAMINOPHEN 650 MG/SUPP.RECT RC PRN (23:35)
[2022-10-16] MEDS: ENOXAPARIN SODIUM 30 MG/0.3 ML DISP.SYRIN SQ SCH (23:49)
--- NOTE | 2022-10-16 23:50 | NUR ---
DENTIST/OWNER NOTE PATIENT'S TEMPERATURE WAS 100.6. CHARGE NURSE AWARE. ADMINISTERED TYLENOL SUPPOSITORY PRN ORDERED. TEMP WENT DOWN TO 99.2. WILL CONTINUE TO MONITOR
[2022-10-16] MEDS: BLOOD SUGAR DIAGNOSTIC 1 EACH STRIP IN SCH (23:56)
[2022-10-17] MEDS: INSULIN REGULAR, HUMAN 100 UNIT/ML 3 ML VIAL SQ PRN ×3 (00:11→14:20)
--- NOTE | 2022-10-17 00:30 | NUR ---
WEIGHT COUNT OPERATOR NOTE DUE MEDS GIVEN. ACCUCHECK WAS DONE AND BLOOD SUGAR WAS 254. HOSPITALIST MADE AWARE AND ORDERED REGULAR INSULIN TO BE GIVEN; ADMINISTERED 6 UNITS OF REGULAR INSULIN PER SLIDING SCALE; WILL CONTINUE TO MONITOR
[2022-10-17] MEDS ORDERED: PIPERACILLIN /TAZOBACTAM 3.375 G VIAL IV ONE (01:18)
[2022-10-17] MEDS ORDERED: ZOSYN IVPB 3.375 G in IV D5W 50ml IV ONE (02:00)
[2022-10-17 04:00] VITALS: BP 116/74
[2022-10-17] MEDS: BLOOD SUGAR DIAGNOSTIC 1 EACH STRIP IN SCH ×2 (05:18→15:13)
--- NOTE | 2022-10-17 06:53 | NUR ---
NAPPER FIXER CLOSING NOTE PATIENT IS A/O X 0, UNABLE TO RESPOND TO SIMPLE COMMANDS BUT RESPONSIVE TO LOCALIZED PAIN; STABLE ON NON REBREATHING MASK SATURATING AT 97-100%; WITH IV ACCESS ON LEFT HAND G#20 RUNNING WITH NORMAL SALINE AT 50 ML/HR; HOOKED TO CERAMIC PAINTER CURRENTLY READING SINUS RHYTHM; WITH SIMENTAL CATHETER IN PLACE DRAINING TO YELLOW COLORED URINE VIA GRAVITY; ADMINISTERED MEDICATIONS PRESCRIBED; PATIENT'S NEEDS ATTENDED; MONITORED PATIENT ACCORDINGLY; SAFETY MEASURES IMPLEMENTED, BED IN LOW AND LOCKED POSITION, SIDE RAILS UP X 4, BED ALARM ON; WILL ENDORSE TO AM NURSE FOR YADI.
[2022-10-17 07:44] LABS: CALCIUM, SERUM 8.5 mg/dL (8.5-10.1); CARBON DIOXIDE 25 mmol/L (21-32); CHLORIDE 112 mmol/L (98-107); CREATININE 0.6 mg/dL (0.6-1.3); GLUCOSE 178 mg/dL (74-106); MAGNESIUM 2.5 mg/dL (1.8-2.4); PHOSPHORUS 3.2 mg/dL (2.5-4.9); SODIUM SERUM 147 mmol/L (136-145); UREA NITROGEN, BLOOD 15 mg/dL (7-18)
[2022-10-17] MEDS ORDERED: PIPERACILLIN /TAZOBACTAM 3.375 G in IV D5W 50 ML IV SCH (08:00)
[2022-10-17 08:03] LABS: BASOPHILS % (AUTO) 0.2 % (0.0-2.0); HEMATOCRIT 28 % (33-45); HEMOGLOBIN 8.7 g/dL (11.5-14.8); LYMPHOCYTES # (AUTO) 2.1 K/uL (0.8-4.8); LYMPHOCYTES % (AUTO) 14.8 % (20.0-44.0); MEAN CORPUSCULAR HGB CONC 31 g/dl (31.0-36.0); MEAN CORPUSCULAR VOLUME 66 fL (82-100); MONOCYTES # (AUTO) 0.6 K/uL (0.1-1.30); MONOCYTES % (AUTO) 4.4 % (2.0-12.0); NEUTROPHILS # (AUTO) 11.4 K/uL (1.8-8.9); NEUTROPHILS % (AUTO) 80.6 % (43.0-81.0); PLATELET COUNT (AUTO) 330 K/uL (150-450); RED BLOOD CELL COUNT(AUTO) 4.26 MIL/uL (4.0-5.2); WHITE BLOOD COUNT (AUTO) 14.2 K/uL (4.3-11.0)
[2022-10-17 08:33] LABS: CHOLESTEROL 95 mg/dL (<200); HDL CHOLESTEROL 54 mg/dL (40-60); LDL 42 mg/dL (0-99); TRIGLYCERIDES 56 mg/dL (30-150)
--- NOTE | 2022-10-17 08:45 | NUR ---
EMPLOYMENT CASE MANAGER OPENING NOTE RECEIVED PATIENT LYING IN BED WITH EYES OPEN, OCC. CRY, UNABLE TO VERBALIZE NEEDS, PATIENT RESPOND TO TOUCH STIMULI. MOVE HER HANDS. HOB ELEVATED SEMI-FRIAS POSITION, O2 VIA NRM AT 100% SAT. NO RESPIRATORY DISTRESS NOTED. IV ACCESS TO LEFT HAND #20 INTACT, SINFUSING NS AT 50ML/HR. PATIENT NPO FOR NOW UNTIL SWALLOW EVAL COMPLETED. SKIN ISSUES SACRUM AREA STAGE 3 WOUND PRESENT ON ADMISSION. WOUND CARE NURSE EVALUATED PATIENT THIS MORNING WE WILL FOLLOW ORDERS TO PROTEC SKIN. REPOSITIONED Q 2 HOURS. SAFE PRECAUTION MEASURES IN PLACE, CALL LIGHT, TABLE WITHIN REACH/ BED LOCKED TO THE LOWEST POSITION.
--- NOTE | 2022-10-17 10:03 | NUR ---
WOUND CARE CONSULT: PT PRESENTS WITH STAGE 3 PRESSURE ULCER TO SACRUM, PRESENT ON ADMISSION. RECOMMENDATIONS MADE FOR SKIN PROTECTION AND WOUND CARE. DISCUSSED WITH NURSING STAFF. DR YUN CALLED FOR SURGICAL CONSULT. IN AGREEMENT WITH PLAN OF CARE. Addendum: 10/17/22 at 1004 by ALEJANDRO HERRERA WNDNU Amended: Links added.
[2022-10-17] MEDS ORDERED: HYDROGEL DRESSING 90 GM TUBE TP PRN (10:30)
[2022-10-17] MEDS: PIPERACILLIN /TAZOBACTAM 3.375 G in IV D5W 100 ML IV SCH ×2 (10:47→19:30)
[2022-10-17] MEDS: PANTOPRAZOLE 40 MG VIAL IV SCH (10:48)
--- NOTE | 2022-10-17 14:21 | NUR ---
LEAD INJECTION MOLD TECHNICIAN NOTE AT 1200 GLUCOSE 135 NO INSULIN GIVEN DUE TO NPO STATUS.
[2022-10-17] MEDS: HYDROGEL DRESSING 90 GM TUBE TP SCH (14:34)
[2022-10-17] MEDS: ACETAMINOPHEN 650 MG/SUPP.RECT RC PRN (17:19)
--- NOTE | 2022-10-17 17:30 | NUR ---
PRE ASSEMBLY WIRER NTE PQXH=430, DULCOLAX SUPP. GIVEN DIRECTED. COOL MEASURES APPLIED. PATIENT 'S DAUGHTER AT BED SIDE. CONT. TO MONITOR.
--- NOTE | 2022-10-17 19:00 | NUR ---
SUPPLY ASSISTANT NOTE PATIENT NPO DUE TO UNABLE TO PARTICIPATE WITH SWALLOW EVAL. DUE TO MENTAL STATUS.
--- NOTE | 2022-10-17 19:00 | NUR ---
POLYSTYRENE BEAD MOLDER CLOSING NOTE\ PATIENT OPEN EYES WITH TOUCH AND VERBAL STIMULI. PATIENT IS NON-VERBAL. 02 VIA NRM 100% SATURATION. NO S/S OF RESPIRATORY DISTRESS NOTED. PATIENT HAD OJYT=[id number] TODAY, TYLENOL SUPP. GIVEN DIRECTED. PATIENT IS ON ANTIBIOTICS. HOB ELEVATED SEMI FRIAS POSITION. SIDE RAILS UP X3, SIMENTAL CATH DRAINING CLEAR YELLOW URINE. IV ACCESS LEFT HAND#20G INTACT. SACRAL WOUND TREATMENT IN PROGRESS PER WOUND CARE NURSE. SAFETY MEASURES IN PLACE, BED LOCKED TO THE LOWEST POSITION, CALL LIGHT, TABLE WITH IN REACH. WILL CONTINUE TO MONITOR TEMP. WILL ENDORSE TO THE FOLLOWING SHIFT.
--- NOTE | 2022-10-17 19:10 | NUR ---
RN NOTES RECEIVED PATIENT A/O X 0 . ON NRB @ 15LPM. SATING AT 94%NO SOB NOTED RESPIRATORY EVEN AND UNLABORED. NO SOB NOTED. NO S/S OF DISTRESS NOTED. AFEBRILE. NOTED WITH LEFT HAND #20 AND RAC PERIPHERAL LINE, FLUSHED WITH NS, NO S/S OF INFILTRATION NOTED RUNNING WITH NS @ 50 ML/HR. SIMENTAL CATHETER PATENT DRAINING WITH DARK YELLOW URINE OUTPUT VIA GRAVITY. ALL SAFETY PRECAUTION PROVIDED. BED IN LOWEST POSITION, LOCKED. CALL LIGHT WITH IN REACH.
[2022-10-17 20:00] VITALS: BP 117/80
[2022-10-17] MEDS: ENOXAPARIN SODIUM 30 MG/0.3 ML DISP.SYRIN SQ SCH (21:15)
[2022-10-18] VITALS: BP 132/64
[2022-10-18] MEDS: BLOOD SUGAR DIAGNOSTIC 1 EACH STRIP IN SCH ×4 (00:12→17:01)
--- NOTE | 2022-10-18 00:12 | NUR ---
RN NOTES NOTED WITH BLOOD SUGAR 50 MG/DL, D50 GIVEN PER PROTOCOL, NO S/S OD HYPOGLYCEMIA NOTED.
[2022-10-18] MEDS: PIPERACILLIN /TAZOBACTAM 3.375 G in IV D5W 100 ML IV SCH ×3 (02:21→17:01)
[2022-10-18] MEDS: INSULIN REGULAR, HUMAN 100 UNIT/ML 3 ML VIAL SQ PRN ×3 (02:40→17:18)
[2022-10-18 04:00] VITALS: BP 99/45
--- NOTE | 2022-10-18 05:00 | NUR ---
RN NOTES PATIENT NOTED WITH TEMP- 100.2 FAHRENHEIT, COOLING MEASURE PROVIDED, ACETAMINOPHEN 650MG SUPP GIVEN.
[2022-10-18] MEDS: ACETAMINOPHEN 650 MG/SUPP.RECT RC PRN ×2 (05:01→23:12)
--- NOTE | 2022-10-18 05:55 | NUR ---
RN NOTES TEMP RECHECKED OBTAINED 99.0 FAHRENHEIT, CONTINUE COOLING MEASURE.
--- NOTE | 2022-10-18 06:56 | NUR ---
RN NOTES CALLED SHRUTHI(DAUGHTER) TO GET CONSENT FOR SERIAL DEBRIDEMENT OF SACRUM. UNABLE TO REACH AT THIS TIME, LEFT MESSAGE THRU VOICEMAIL.
--- NOTE | 2022-10-18 07:00 | NUR ---
RECEIVED REPORT FROM CESARIO KUO. WILL CONTINUE PLAN OF CARE.
[2022-10-18 07:16] LABS: BASOPHILS % (AUTO) 0.3 % (0.0-2.0); EOSINOPHILS % (AUTO) 0.4 % (0.0-6.0); HEMATOCRIT 24 % (33-45); HEMOGLOBIN 7.6 g/dL (11.5-14.8); LYMPHOCYTES # (AUTO) 1.4 K/uL (0.8-4.8); LYMPHOCYTES % (AUTO) 13.3 % (20.0-44.0); MEAN CORPUSCULAR HGB CONC 32 g/dl (31.0-36.0); MEAN CORPUSCULAR VOLUME 64 fL (82-100); MONOCYTES # (AUTO) 0.5 K/uL (0.1-1.30); MONOCYTES % (AUTO) 4.5 % (2.0-12.0); NEUTROPHILS # (AUTO) 8.7 K/uL (1.8-8.9); NEUTROPHILS % (AUTO) 81.5 % (43.0-81.0); PLATELET COUNT (AUTO) 258 K/uL (150-450); RED BLOOD CELL COUNT(AUTO) 3.67 MIL/uL (4.0-5.2); WHITE BLOOD COUNT (AUTO) 10.7 K/uL (4.3-11.0)
[2022-10-18 07:48] LABS: CALCIUM, SERUM 8.1 mg/dL (8.5-10.1); CARBON DIOXIDE 26 mmol/L (21-32); CHLORIDE 106 mmol/L (98-107); CREATININE 0.5 mg/dL (0.6-1.3); GLUCOSE 152 mg/dL (74-106); SODIUM SERUM 138 mmol/L (136-145); UREA NITROGEN, BLOOD 16 mg/dL (7-18)
[2022-10-18 08:00] VITALS: BP 96/51
[2022-10-18] MEDS ORDERED: IV 10% DEXTROSE 1,000 ML IV PRN (09:00)
[2022-10-18] MEDS: HYDROGEL DRESSING 90 GM TUBE TP SCH (09:00)
[2022-10-18] MEDS: PANTOPRAZOLE 40 MG VIAL IV SCH (09:27)
[2022-10-18] MEDS ORDERED: IV D5W 1,000 ML IV PRN (09:30)
[2022-10-18] MEDS ORDERED: POTASSIUM CHLORIDE 20 MEQ TAB.PRT.SR PO SCH (11:00)
[2022-10-18] MEDS: POTASSIUM CL. PREMIX PERIPHER. 50 ML IV SCH ×6 (11:39→16:49)
[2022-10-18 12:00] VITALS: BP 97/49
[2022-10-18 16:00] VITALS: BP 113/72
[2022-10-18] MEDS: IV NS 0.9% 1,000 ML IV PRN (16:58)
--- NOTE | 2022-10-18 18:38 | NUR ---
PATIENT REMAINS IN ROOM ALERT AND ORIENTED TIMES ZERO. CLUTCHING STUFFED ANIMAL IN BED. SINUS RHYTHM ON THE MONITOR AT THIS TIME. SIMENTAL DRAINING YELLOW OUTPUT. IV ACCESS MAINTAINED AT LEFT HAND 20 GAUGE AND RIGHT AC 20 GAUGE. FLUIDS RUNNING ORDERED. SAFETY MEASURES IMPLEMENTED. WILL ENDORSE TO NIGHTSHIFT NY KUO FOR CONTINUATION OF CARE.
--- NOTE | 2022-10-18 19:15 | NUR ---
RN OPENING NOTES RECEIVED PATIENT A/O X 0 . ON NASAL CANULA @ 6LPM. SATING AT 94%NO SOB NOTED RESPIRATORY EVEN AND UNLABORED. NO SOB NOTED. NO S/S OF DISTRESS NOTED. AFEBRILE. NOTED WITH LEFT HAND #20 AND RAC #20 PERIPHERAL LINE, FLUSHED WITH NS, NO S/S OF INFILTRATION NOTED RUNNING WITH NS @ 50 ML/HR. SIMENTAL CATHETER PATENT DRAINING WITH DARK YELLOW URINE OUTPUT VIA GRAVITY. ALL SAFETY PRECAUTION PROVIDED. BED IN LOWEST POSITION, LOCKED. CALL LIGHT WITH IN REACH.
[2022-10-18 20:00] VITALS: BP 148/66
[2022-10-18] MEDS: ENOXAPARIN SODIUM 30 MG/0.3 ML DISP.SYRIN SQ SCH (21:41)
--- NOTE | 2022-10-18 23:12 | NUR ---
RN NOTES PATIENT NOTED WITH TEMP- 100.0 FAHRENHEIT, COOLING MEASURE PROVIDED, ACETAMINOPHEN 650MG SUPP GIVEN.
--- NOTE | 2022-10-18 23:50 | NUR ---
RN NOTES TEMP RECHECKED OBTAINED 99.7 FAHRENHEIT, CONTINUE COOLING MEASURE.
[2022-10-19] VITALS: BP 123/63
--- NOTE | 2022-10-19 00:05 | NUR ---
RN NOTES PATIENT NOTED TO BE AFIB ON TELE MONITOR, HR- 140'S TO 150'S, BP- 130/82. NOTIFIED SHAYLA LOCKWOOD WITH NEW ORDER CARDIZEM 10MG IVP ONCE, NOTED AND CARRIED OUT.
[2022-10-19] MEDS ORDERED: DILTIAZEM HCL 25 MG IV ONE (00:15)
[2022-10-19] MEDS ORDERED: DILTIAZEM HCL 50 MG IV IVP ONE (00:30)
--- NOTE | 2022-10-19 00:35 | NUR ---
RN NOTES CONVERTED TO NORMAL SINUS RHYTHM WITH HEART RATE- 97.
[2022-10-19] MEDS: INSULIN REGULAR, HUMAN 100 UNIT/ML 3 ML VIAL SQ PRN ×4 (00:57→17:12)
[2022-10-19] MEDS: BLOOD SUGAR DIAGNOSTIC 1 EACH STRIP IN SCH ×4 (00:57→17:10)
--- NOTE | 2022-10-19 00:58 | NUR ---
RN NOTES NOTED WITH BLOOD SUGAR 113 mg/dL, NO INSULIN COVERAGE PER SLIDING SCALE. NO S/S OF HYPOGLYCEMIA NOTED.
[2022-10-19] MEDS: PIPERACILLIN /TAZOBACTAM 3.375 G in IV D5W 100 ML IV SCH ×2 (02:11→09:35)
[2022-10-19 04:00] VITALS: BP 101/60
--- NOTE | 2022-10-19 07:30 | NUR ---
OPENING NOTE RECEIVED PATIENT IN BED ASLEEP BUT AROUSABLE, OPEN EYES BUT NONE VERBAL, NO SIGNS OF IN DISTRESS, UNLABORED BREATHING, SAFETY MEASURES IN PLACE, BED IN LOW POSITION LOCKED, SIDE RAILS UPX3, CALL LIGHT WITHIN REACHED.
[2022-10-19 08:00] VITALS: BP 152/74
[2022-10-19] MEDS ORDERED: POTASSIUM CHLORIDE 20 MEQ TAB.PRT.SR PO ONE (08:00)
[2022-10-19] MEDS ORDERED: POTASSIUM CL. PREMIX PERIPHER. 50 ML IV SCH (08:00)
[2022-10-19] MEDS: PANTOPRAZOLE 40 MG VIAL IV SCH (08:45)
[2022-10-19 09:52] LABS: CALCIUM, SERUM 8.2 mg/dL (8.5-10.1); CARBON DIOXIDE 24 mmol/L (21-32); CHLORIDE 108 mmol/L (98-107); CREATININE 0.5 mg/dL (0.6-1.3); GLUCOSE 201 mg/dL (74-106); POTASSIUM 3.6 mmol/L (3.5-5.1); SODIUM SERUM 140 mmol/L (136-145); UREA NITROGEN, BLOOD 8 mg/dL (7-18)
[2022-10-19] MEDS: HYDROGEL DRESSING 90 GM TUBE TP SCH (10:14)
[2022-10-19] MEDS: MEROPENEM 1 G in IV NS 0.9% 100 ML IV SCH (11:23)
[2022-10-19 12:00] VITALS: BP 148/79
[2022-10-19] MEDS ORDERED: POTASSIUM CHLORIDE 10 MEQ/50 ML PREMIXED IVPB FOR PERIPHERAL LINE IV SCH (13:00)
[2022-10-19 16:00] VITALS: BP 153/67
[2022-10-19] MEDS: GLUCERNA SHAKE 237 ML CAN PO SCH (16:23)
[2022-10-19] MEDS: ACETAMINOPHEN 650 MG/SUPP.RECT RC PRN (16:31)
[2022-10-19] MEDS: IV NS 0.9% 1,000 ML IV PRN (16:54)
--- NOTE | 2022-10-19 19:10 | NUR ---
RN OPENING NOTE RECEIVED PATIENT IN BED, NONVERBAL, O2 VIA NC AT 6L, NO SOB/DISTRESS NOTED. ON TELE MONITOR SHOWING SINUS RHYTHM, HR 88. IV ACCESS ON L HAND #20G, S/L AND RAC INFUSING NS AT 50 ML/HR. NO S/SX OF INFILTRATION NOTED. SIMENTAL CATHETER IN PLACE, INTACT AND PATENT, DRAINING CLEAR YELLOW URINE. SAFETY MEASURES IN PLACE: BED LOCKED IN LOWEST POSITION, SIDE RAILS UP X3, CALL LIGHT WITHIN REACH, BED ALARM ON.
[2022-10-19 20:00] VITALS: BP 110/48
[2022-10-19] MEDS: ENOXAPARIN SODIUM 30 MG/0.3 ML DISP.SYRIN SQ SCH (21:00)
--- NOTE | 2022-10-19 21:19 | NUR ---
RN NOTE PATIENT'S HGB IS TRENDING DOWN FROM 8.7 TO 7.6, NOTIFIED STEVE LOCKWOOD NP, HOLD LOVENOX FOR [employer] Transmit & Receive.
[2022-10-20] VITALS: BP 99/62
[2022-10-20] MEDS: MEROPENEM 1 G in IV NS 0.9% 100 ML IV SCH ×3 (00:26→23:00)
[2022-10-20] MEDS: BLOOD SUGAR DIAGNOSTIC 1 EACH STRIP IN SCH ×5 (00:27→23:38)
[2022-10-20] MEDS: INSULIN REGULAR, HUMAN 100 UNIT/ML 3 ML VIAL SQ PRN ×4 (00:28→23:37)
[2022-10-20 04:00] VITALS: BP 134/65
--- NOTE | 2022-10-20 06:43 | NUR ---
RN CLOSING NOTE PATIENT IN BED, AWAKE, AAOx0, NONVERBAL. O2 VIA NC AT 6L, NO SOB/DISTRESS NOTED. ON TELE MONITOR SHOWING SINUS RHYTHM, HR 98. IV ACCESS ON RAC INFUSING NS AT 50 ML/HR. NO S/SX OF INFILTRATION NOTED. SIMENTAL CATHETER IN PLACE, INTACT AND PATENT, DRAINING CLEAR YELLOW URINE. SAFETY MEASURES IN PLACE: BED LOCKED IN LOWEST POSITION, SIDE RAILS UP X3, CALL LIGHT WITHIN REACH, BED ALARM ON. ALL DUE MED GIVEN, ALL NEEDS ATTENDED. WILL ENDORSE TO ONCOMING NURSE FOR YADI.
[2022-10-20 07:14] LABS: BASOPHILS % (AUTO) 0.5 % (0.0-2.0); HEMATOCRIT 25 % (33-45); HEMOGLOBIN 7.7 g/dL (11.5-14.8); LYMPHOCYTES # (AUTO) 2.1 K/uL (0.8-4.8); LYMPHOCYTES % (AUTO) 29.2 % (20.0-44.0); MEAN CORPUSCULAR HGB CONC 31 g/dl (31.0-36.0); MEAN CORPUSCULAR VOLUME 64 fL (82-100); MONOCYTES # (AUTO) 0.4 K/uL (0.1-1.30); MONOCYTES % (AUTO) 5.9 % (2.0-12.0); NEUTROPHILS # (AUTO) 4.4 K/uL (1.8-8.9); NEUTROPHILS % (AUTO) 62.4 % (43.0-81.0); PLATELET COUNT (AUTO) 306 K/uL (150-450); RED BLOOD CELL COUNT(AUTO) 3.85 MIL/uL (4.0-5.2)
[2022-10-20 07:34] LABS: CALCIUM, SERUM 8.5 mg/dL (8.5-10.1); CARBON DIOXIDE 24 mmol/L (21-32); CHLORIDE 109 mmol/L (98-107); CREATININE 0.5 mg/dL (0.6-1.3); GLUCOSE 148 mg/dL (74-106); POTASSIUM 3.4 mmol/L (3.5-5.1); SODIUM SERUM 142 mmol/L (136-145); UREA NITROGEN, BLOOD 6 mg/dL (7-18)
[2022-10-20 08:05] VITALS: BP 117/72
[2022-10-20] MEDS: GLUCERNA SHAKE 237 ML CAN PO SCH ×3 (08:11→16:50)
[2022-10-20] MEDS: PANTOPRAZOLE 40 MG TABLET.DR PO SCH (09:02)
[2022-10-20] MEDS: HYDROGEL DRESSING 90 GM TUBE TP SCH (09:03)
[2022-10-20] MEDS ORDERED: POTASSIUM CHLORIDE 20 MEQ TAB.PRT.SR PO SCH (11:00)
[2022-10-20 11:03] LABS: BAND % (MANUAL) 1 % (0.0-5.0); EOSINOPHILS % (MANUAL) 1 % (0-4); LYMPHOCYTES % (MANUAL) 22 % (16-48); MONOCYTES % (MANUAL) 3 % (0-11.0); NEUTROPHILS % (MANUAL) 73 (42-76)
[2022-10-20 12:00] VITALS: BP 91/52
[2022-10-20 16:00] VITALS: BP 118/72
[2022-10-20 20:00] VITALS: BP 139/87
--- NOTE | 2022-10-20 20:00 | NUR ---
[facility] RN OPENING NOTE RECEIVED PATIENT IN BED, NONVERBAL, O2 VIA NC AT 2L, NO SOB/DISTRESS NOTED. ON TELE MONITOR SINUS RHYTHM, HR 85. IV ACCESS ON L HAND #20G, S/L AND RAC INFUSING NS AT 50 ML/HR. NO S/SX OF INFILTRATION NOTED. SIMENTAL CATHETER IN PLACE, INTACT AND PATENT, DRAINING CLEAR YELLOW URINE. SAFETY MEASURES IN PLACE: BED LOCKED IN LOWEST POSITION, SIDE RAILS UP X3, CALL LIGHT WITHIN REACH, BED ALARM ON.SON AT BEDSIDE UPDATED WITH PTS CONDITION , WILL CONTINUE TO MONITOR PTS.
[2022-10-20] MEDS: ENOXAPARIN SODIUM 40 MG/0.4 ML DISP.SYRIN SQ SCH (21:00)
--- NOTE | 2022-10-20 23:39 | NUR ---
[facility] RN NOTES BLOOD SUGAR AT 12MN IS 151MG/DL 2 UNITS OF REGULAR INSULIN GIVEN PER SLIDING SCALE
[2022-10-20] MEDS: IV NS 0.9% 1,000 ML IV PRN (23:40)
[2022-10-21] VITALS (7 sets, daily range): BP systolic 104–138; BP diastolic 56–68
[2022-10-21] MEDS: INSULIN REGULAR, HUMAN 100 UNIT/ML 3 ML VIAL SQ PRN ×3 (05:08→23:36)
[2022-10-21] MEDS: BLOOD SUGAR DIAGNOSTIC 1 EACH STRIP IN SCH ×4 (05:09→23:37)
--- NOTE | 2022-10-21 05:10 | NUR ---
[facility] RN NOTES BLOOD SUGAR FOR 6AM IS 102MG/DL NO INSULIN COVERAGE GIVEN PER SLIDING SCALE.
--- NOTE | 2022-10-21 06:12 | NUR ---
[facility] RN CLOSING NOTE PATIENT IN BED, AWAKE, AAOx0, NONVERBAL. O2 VIA NC AT 2L, NO SOB/DISTRESS NOTED. ON TELE MONITOR SHOWING SINUS RHYTHM, HR 94. IV ACCESS ON RAC INFUSING NS AT 50 ML/HR. NO S/SX OF INFILTRATION NOTED. SIMENTAL CATHETER IN PLACE, INTACT AND PATENT, DRAINING CLEAR YELLOW URINE. SAFETY MEASURES IN PLACE: BED LOCKED IN LOWEST POSITION, SIDE RAILS UP X3, CALL LIGHT WITHIN REACH, BED ALARM ON. ALL DUE MED GIVEN, ALL NEEDS ATTENDED. WILL ENDORSE TO INCOMING NURSE FOR YADI.
[2022-10-21 06:26] LABS: BASOPHILS % (AUTO) 0.6 % (0.0-2.0); EOSINOPHILS % (AUTO) 4.1 % (0.0-6.0); HEMATOCRIT 25 % (33-45); LYMPHOCYTES % (AUTO) 37.8 % (20.0-44.0); MEAN CORPUSCULAR HGB CONC 32 g/dl (31.0-36.0); MEAN CORPUSCULAR VOLUME 63 fL (82-100); MONOCYTES # (AUTO) 0.5 K/uL (0.1-1.30); MONOCYTES % (AUTO) 9.2 % (2.0-12.0); NEUTROPHILS # (AUTO) 2.6 K/uL (1.8-8.9); NEUTROPHILS % (AUTO) 48.3 % (43.0-81.0); PLATELET COUNT (AUTO) 323 K/uL (150-450); RED BLOOD CELL COUNT(AUTO) 3.97 MIL/uL (4.0-5.2); WHITE BLOOD COUNT (AUTO) 5.3 K/uL (4.3-11.0)
[2022-10-21 07:07] LABS: CALCIUM, SERUM 8.5 mg/dL (8.5-10.1); CARBON DIOXIDE 26 mmol/L (21-32); CHLORIDE 109 mmol/L (98-107); CREATININE 0.6 mg/dL (0.6-1.3); GLUCOSE 120 mg/dL (74-106); POTASSIUM 3.2 mmol/L (3.5-5.1); SODIUM SERUM 143 mmol/L (136-145); UREA NITROGEN, BLOOD 5 mg/dL (7-18)
--- NOTE | 2022-10-21 07:30 | NUR ---
[facility] RN AM NOTE RECEIVED PATIENT IN BED, NONVERBAL, OPENS EYES, O2 VIA NC AT 2L, NO SOB/DISTRESS NOTED. O2 SAT AT 100%. RESPIRATION UNLABORED. SR HR 79 ON MONITOR. NO SIGNS OF DISCOMFORT/PAIN.NO GRIMACINGS. BENNY MIDLINE WITH NS AT 50 ML/HR. RAC G20 FLUSHES WELL, SITE CLEAR. SIMENTAL CATHETER IN PLACE, INTACT AND PATENT, DRAINING CLEAR YELLOW URINE. SEE NURSING FLOWSHEET FOR SKIN ISSUES. WILL PERFORM PRESCRIBED WOUND TREATMENT, TURNA AND REPOSTIION Q 2 HOURS. SAFETY MEASURES IN PLACE: BED LOCKED IN LOWEST POSITION, SIDE RAILS UP X3, CALL LIGHT WITHIN REACH, BED ALARM ON. WILL CONTINUE TO MONITOR. .
[2022-10-21] MEDS: GLUCERNA SHAKE 237 ML CAN PO SCH ×3 (08:12→16:25)
[2022-10-21] MEDS ORDERED: MERO1VIA23 IV (08:24)
[2022-10-21] MEDS: PANTOPRAZOLE 40 MG TABLET.DR PO SCH (08:25)
[2022-10-21] MEDS: HYDROGEL DRESSING 90 GM TUBE TP SCH (08:33)
--- NOTE | 2022-10-21 09:30 | NUR ---
RN NOTES DUE MEDS GIVEN
--- NOTE | 2022-10-21 11:31 | NUR ---
PER COMPENSATION CONSULTING MANAGER PENDING DISCHARGE.
[2022-10-21] MEDS: MEROPENEM 1 G in IV NS 0.9% 100 ML IV SCH ×2 (11:58→23:12)
[2022-10-21] MEDS: POTASSIUM CHLORIDE 20 MEQ TAB.PRT.SR PO SCH ×2 (13:39→14:48)
--- NOTE | 2022-10-21 15:53 | NUR ---
RN NOTES REPORT GIVEN TO GRAND ADRY GRULLON.
--- NOTE | 2022-10-21 19:00 | NUR ---
CLOSING NOTE PATIENT IS IN BED RESTING COMFORTABLY, NON VERBAL BUT OPEN EYES AND RESPONSE TO STIMULI, NO SIGNS OF IN DISTRESS, UNLABORED BREATHING ON 2L/MIN OF O2, SAFETY MEASURES ARE IN PLACE, BEF IN LOW POSITION LOCKED, SIDE RAILS UPX3, CALL LIGHT WITHIN REACH.
--- NOTE | 2022-10-21 20:00 | NUR ---
FIELD SERVICE TECHNICIAN NOTES RECEIVED PATIENT IN BED, NONVERBAL, O2 VIA NC AT 2L, NO SOB/DISTRESS NOTED. ON TELE MONITOR SINUS RHYTHM, HR 78. IV ACCESS ON L HAND #20G, S/L AND RAC INFUSING NS AT 50 ML/HR. NO S/SX OF INFILTRATION NOTED. SIMNETAL CATHETER IN PLACE, INTACT AND PATENT, DRAINING CLEAR YELLOW URINE. SAFETY MEASURES IN PLACE: BED LOCKED IN LOWEST POSITION, SIDE RAILS UP X3, CALL LIGHT WITHIN REACH, BED ALARM ON.SON AT BEDSIDE UPDATED WITH PTS CONDITION , WILL CONTINUE TO MONITOR PTS.
[2022-10-21] MEDS: ENOXAPARIN SODIUM 40 MG/0.4 ML DISP.SYRIN SQ SCH (20:10)
[2022-10-21] MEDS: IV NS 0.9% 1,000 ML IV PRN (20:45)
--- NOTE | 2022-10-21 23:29 | NUR ---
telephoto installer notes Blood sugar at 12mn is 126mg/dl no coverage of insulin given per sliding scale .
[2022-10-22] VITALS: BP 113/76
[2022-10-22] MEDS: BLOOD SUGAR DIAGNOSTIC 1 EACH STRIP IN SCH ×4 (05:27→23:14)
[2022-10-22] MEDS: INSULIN REGULAR, HUMAN 100 UNIT/ML 3 ML VIAL SQ PRN ×3 (05:30→23:14)
--- NOTE | 2022-10-22 05:49 | NUR ---
telephony engineer notes Blood sugar at 6am is 129mg/dl no coverage of insulin given per sliding scale .
[2022-10-22 06:00] VITALS: BP 127/60
--- NOTE | 2022-10-22 06:42 | NUR ---
LINK TRAINER MAINTENANCE MAN CLOSING NOTE PATIENT IS IN BED RESTING COMFORTABLY, NON VERBAL BUT OPEN EYES AND RESPONSE TO STIMULI, NO SIGNS OF IN DISTRESS, UNLABORED BREATHING ON 2L/MIN OF O2, SAFETY MEASURES ARE IN PLACE, BEF IN LOW POSITION LOCKED, SIDE RAILS UPX3, CALL LIGHT WITHIN REACH.WILL ENDORSE TO RN DAY SHIFT FOR CONTINUITY OF CARE.
--- NOTE | 2022-10-22 07:00 | NUR ---
RN OPENING NOTES RECEIVED PATIENT IN BED, NONVERBAL, O2 VIA NC AT 2L, WITH NO SHORTNESS OF BREATH OR DISTRESS NOTED. ON TELE MONITOR SINUS RHYTHM, HR 79. IV ACCESS ON L HAND #20G, NO S/SX OF INFILTRATION NOTED. SIMENTAL CATHETER IN PLACE, INTACT AND PATENT, DRAINING CLEAR YELLOW URINE. SAFETY MEASURES IN PLACE: BED LOCKED IN LOWEST AND LOCKED POSITION, SIDE RAILS UP X3, CALL LIGHT WITHIN REACH, BED ALARM ON. WILL CONTINUE TO MONITOR.
[2022-10-22 07:22] LABS: CALCIUM, SERUM 8.7 mg/dL (8.5-10.1); CARBON DIOXIDE 26 mmol/L (21-32); CHLORIDE 108 mmol/L (98-107); CREATININE 0.5 mg/dL (0.6-1.3); GLUCOSE 132 mg/dL (74-106); POTASSIUM 3.7 mmol/L (3.5-5.1); SODIUM SERUM 142 mmol/L (136-145); UREA NITROGEN, BLOOD 5 mg/dL (7-18)
[2022-10-22 08:00] VITALS: BP 121/76
[2022-10-22] MEDS: GLUCERNA SHAKE 237 ML CAN PO SCH ×3 (08:11→17:12)
[2022-10-22] MEDS: PANTOPRAZOLE 40 MG TABLET.DR PO SCH (08:13)
[2022-10-22] MEDS: HYDROGEL DRESSING 90 GM TUBE TP SCH (08:17)
[2022-10-22] MEDS: MEROPENEM 1 G in IV NS 0.9% 100 ML IV SCH ×2 (11:25→23:24)
[2022-10-22 12:00] VITALS: BP 142/73
[2022-10-22 16:00] VITALS: BP 139/71
[2022-10-22] MEDS: IV NS 0.9% 1,000 ML IV PRN (17:12)
--- NOTE | 2022-10-22 18:51 | NUR ---
RN CLOSING NOTE PATIENT IS ALERT, IN BED COMFORTABLY, NON VERBAL BUT OPEN EYES AND RESPONSE TO STIMULI, NO SIGNS OF IN DISTRESS, UNLABORED BREATHING ON 3L/MIN OF O2, IV ACCESS PATENT AND FLUSHING WELL, SIMENTAL CATHETER IN PLACE, URINE YELLOW AND CLEAR AND DRAINING BY GRAVITY, ON FLUIDS ORDERED, WAS REPOSITIONED EVERY 2 HOURS. SAFETY MEASURES ARE IN PLACE,AND IMPLEMENTED, BED IN LOWEST AND LOCKED POSITION, HEAD OF BED ELEVATED, SIDE RAILS UPX3, CALL LIGHT WITHIN REACH. WILL ENDORSE TO POWER SHOVEL ENGINEER NURSE.
[2022-10-22 20:00] VITALS: BP 118/67
--- NOTE | 2022-10-22 20:00 | NUR ---
SOFTWARE ENGINEERING ANALYST NOTES RECEIVED PATIENT IN BED, NONVERBAL, O2 VIA NC AT 2L, NO SOB/DISTRESS NOTED. ON TELE MONITOR SINUS RHYTHM, HR 78. IV ACCESS ON L HAND #20G, S/L AND RAC INFUSING NS AT 50 ML/HR. NO S/SX OF INFILTRATION NOTED. SIMENTAL CATHETER IN PLACE, INTACT AND PATENT, DRAINING CLEAR YELLOW URINE. SAFETY MEASURES IN PLACE: BED LOCKED IN LOWEST POSITION, SIDE RAILS UP X3, CALL LIGHT WITHIN REACH, BED ALARM ON.SON AT BEDSIDE UPDATED WITH PTS CONDITION , WILL CONTINUE TO MONITOR PTS.
[2022-10-22] MEDS: ENOXAPARIN SODIUM 40 MG/0.4 ML DISP.SYRIN SQ SCH (20:05)
--- NOTE | 2022-10-22 23:13 | NUR ---
singing telegram performer notes Blood sugar for 12mn is 129mg/dl no insulin coverage given per sliding scale
[2022-10-23] VITALS: BP 117/64
[2022-10-23 04:00] VITALS: BP 110/72
[2022-10-23] MEDS: BLOOD SUGAR DIAGNOSTIC 1 EACH STRIP IN SCH ×3 (05:25→18:12)
--- NOTE | 2022-10-23 05:25 | NUR ---
tracey rn notes Blood sugar for 6mn is 122mg/dl no insulin coverage given per sliding scale
[2022-10-23] MEDS: INSULIN REGULAR, HUMAN 100 UNIT/ML 3 ML VIAL SQ PRN (05:26)
--- NOTE | 2022-10-23 06:25 | NUR ---
SMALL PRODUCTS ASSEMBLER NOTES RECEIVED PATIENT IN BED, NONVERBAL, O2 VIA NC AT 2L, NO SOB/DISTRESS NOTED. ON TELE MONITOR SINUS RHYTHM, HR 75 IV ACCESS ON L HAND #20G, S/L AND RAC INFUSING NS AT 50 ML/HR. NO S/SX OF INFILTRATION NOTED. SIMENTAL CATHETER IN PLACE, INTACT AND PATENT, DRAINING CLEAR YELLOW URINE. SAFETY MEASURES IN PLACE: BED LOCKED IN LOWEST POSITION, SIDE RAILS UP X3, CALL LIGHT WITHIN REACH, BED ALARM ON. , WILL ENDORSE TO RN DAY SHIFT FOR CONTINUITY OF CARE.PTS POSSIBLE D/C TODAY.
[2022-10-23 07:07] LABS: BASOPHILS % (AUTO) 0.5 % (0.0-2.0); EOSINOPHILS % (AUTO) 4.8 % (0.0-6.0); HEMATOCRIT 23 % (33-45); HEMOGLOBIN 7.6 g/dL (11.5-14.8); LYMPHOCYTES # (AUTO) 1.8 K/uL (0.8-4.8); LYMPHOCYTES % (AUTO) 37.9 % (20.0-44.0); MEAN CORPUSCULAR HGB CONC 33 g/dl (31.0-36.0); MEAN CORPUSCULAR VOLUME 64 fL (82-100); MONOCYTES # (AUTO) 0.5 K/uL (0.1-1.30); MONOCYTES % (AUTO) 9.3 % (2.0-12.0); NEUTROPHILS # (AUTO) 2.3 K/uL (1.8-8.9); NEUTROPHILS % (AUTO) 47.5 % (43.0-81.0); PLATELET COUNT (AUTO) 338 K/uL (150-450); RED BLOOD CELL COUNT(AUTO) 3.66 MIL/uL (4.0-5.2); WHITE BLOOD COUNT (AUTO) 4.9 K/uL (4.3-11.0)
[2022-10-23 07:23] LABS: ALANINE AMINOTRANSFERASE 17 U/L (12-78); ALBUMIN 2.2 g/dL (3.4-5.0); ALKALINE PHOSPHATASE 54 U/L (46-116); ASPARTATE AMINOTRANSFERASE 11 U/L (15-37); BILIRUBIN,TOTAL 0.3 mg/dL (0.2-1.0); CALCIUM, SERUM 8.8 mg/dL (8.5-10.1); CARBON DIOXIDE 28 mmol/L (21-32); CHLORIDE 109 mmol/L (98-107); CREATININE 0.4 mg/dL (0.6-1.3); GLUCOSE 129 mg/dL (74-106); PHOSPHORUS 3.1 mg/dL (2.5-4.9); POTASSIUM 3.8 mmol/L (3.5-5.1); SODIUM SERUM 143 mmol/L (136-145); TOTAL PROTEIN, SERUM 5.8 g/dL (6.4-8.2); UREA NITROGEN, BLOOD 6 mg/dL (7-18)
[2022-10-23 08:00] VITALS: BP 113/59
[2022-10-23] MEDS: PANTOPRAZOLE 40 MG TABLET.DR PO SCH (09:15)
[2022-10-23] MEDS: GLUCERNA SHAKE 237 ML CAN PO SCH ×3 (09:17→16:30)
[2022-10-23] MEDS: HYDROGEL DRESSING 90 GM TUBE TP SCH (09:18)
[2022-10-23] MEDS: MEROPENEM 1 G in IV NS 0.9% 100 ML IV SCH (11:28)
[2022-10-23 12:00] VITALS: BP 108/62
[2022-10-23] MEDS: IV NS 0.9% 1,000 ML IV PRN (13:14)
[2022-10-23 16:23] VITALS: BP 120/63
--- NOTE | 2022-10-23 18:49 | NUR ---
RN CLOSING NOTE PATIENT IS ALERT, IN BED COMFORTABLY, NON VERBAL BUT OPEN EYES AND RESPONSE TO STIMULI, NO SIGNS OF IN DISTRESS, UNLABORED BREATHING ON 3L/MIN OF O2, IV ACCESS PATENT AND FLUSHING WELL, SIMENTAL CATHETER IN PLACE, URINE YELLOW AND CLEAR AND DRAINING BY GRAVITY, ON FLUIDS ORDERED, WAS REPOSITIONED EVERY 2 HOURS. SAFETY MEASURES ARE IN PLACE,AND IMPLEMENTED, BED IN LOWEST AND LOCKED POSITION, HEAD OF BED ELEVATED, SIDE RAILS UPX3, CALL LIGHT WITHIN REACH. WILL ENDORSE TO CONSTRUCTION ENGINEERING MANAGER NURSE.
--- NOTE | 2022-10-23 19:20 | NUR ---
STEAM AND POWER SUPERVISOR NOTE: RECEIVED PATIENT ALERT BUT NON -VERBAL REPORT GIVEN BY AM NURSE CORIN PT RESPONDS TO TACTILE STIMULI PATIENT IS TURNED AN REPOSITION ORDERED PT IS NSR ON THE MONITOR NO SIGNS OF DISTRESSED NOTED. PT HAS ORDERED TO D/C TO SNF PATIENT DAUGHTER IS AWARE AND AT PATIENT BEDSIDE SHE WANTS TO BE CALLED WHEN PATIENT IS BEING TRANSFERRED. WILL ENDORSE TO AM NURSE. PATIENT HAS IVF OF NS INFUSING AT 50ML AND HOUR NO SIGNS OF RESPIRATORY PT HAS ACCUCHECK Q6H. FALL AND SAFETY MAINTAINED WILL CONTINUE TO MONITOR.
[2022-10-23 20:00] VITALS: BP 118/64
[2022-10-23] MEDS: ENOXAPARIN SODIUM 40 MG/0.4 ML DISP.SYRIN SQ SCH (21:34)
[2022-10-24] VITALS: BP 139/71
[2022-10-24] MEDS: BLOOD SUGAR DIAGNOSTIC 1 EACH STRIP IN SCH ×3 (00:40→11:55)
[2022-10-24] MEDS: INSULIN REGULAR, HUMAN 100 UNIT/ML 3 ML VIAL SQ PRN ×3 (00:41→12:01)
[2022-10-24] MEDS: MEROPENEM 1 G in IV NS 0.9% 100 ML IV SCH ×2 (00:46→12:03)
[2022-10-24 04:00] VITALS: BP 124/75
--- NOTE | 2022-10-24 07:30 | NUR ---
AUTOMOBILE UPHOLSTERER AM NOTE RECEIVED PATIENT IN BED, NONVERBAL, OPENS EYES, O2 VIA NC AT 2L, NO SOB/DISTRESS NOTED. O2 SAT AT 100%. RESPIRATION UNLABORED. SR HR 78 ON MONITOR. NO SIGNS OF DISCOMFORT/PAIN.NO GRIMACINGS. BENNY MIDLINE WITH NS AT 50 ML/HR. RAC G20 FLUSHES WELL, SITE CLEAR. SIMENTAL CATHETER IN PLACE, INTACT AND PATENT, DRAINING CLEAR YELLOW URINE. SEE NURSING FLOWSHEET FOR SKIN ISSUES. WILL PERFORM PRESCRIBED WOUND TREATMENT, TURN AND REPOSITION Q 2 HOURS. SAFETY MEASURES IN PLACE: BED LOCKED IN LOWEST POSITION, SIDE RAILS UP X3, CALL LIGHT WITHIN REACH, BED ALARM ON. WILL CONTINUE TO MONITOR. .
[2022-10-24 08:00] VITALS: BP 118/78
--- NOTE | 2022-10-24 08:17 | NUR ---
CLEARANCE DIVER CLOSING NOTE: PT GIVEN AM CARE ORDERED. AM BLOOD SUGAR IS 111 NO SIGNS OF DIABETIC REACTION NO INSULIN REQUIRED. PT IS TURNED AND WOUND CREME TO SACRAL AREA APPLIED ALONG WITH OPTIFOAM PT TOLERATED WELL. PT IS REPOSITIONED EVERY 2 HOURS ALONG WITH MONITORING EVERY 2 HOURS PATIENT STILL ON MONITOR. PT IS DAILY WEIGHT BED SCALE SHOWED PATIENT WEIGHT 99 POUND AND URINE OUTPUT IS 100 ENDORSED TO AM NURSE.
[2022-10-24] MEDS: GLUCERNA SHAKE 237 ML CAN PO SCH ×2 (08:41→11:55)
--- NOTE | 2022-10-24 09:30 | NUR ---
RN NOTES DUE MEDS GIVEN
[2022-10-24] MEDS: PANTOPRAZOLE 40 MG TABLET.DR PO SCH (09:36)
[2022-10-24] MEDS: HYDROGEL DRESSING 90 GM TUBE TP SCH (09:37)
[2022-10-24] MEDS: IV NS 0.9% 1,000 ML IV PRN (09:43)
[2022-10-24 12:00] VITALS: BP 120/72
[2022-10-24 16:00] VITALS: BP 138/68
--- NOTE | 2022-10-24 16:23 | NUR ---
RN NOTES PATIENT DISCHARGED TO [facility] PER MD IN STABLE CONDITION. PROVIDED DC INSTRUCTIONS, MED RECON LIST AND HEALTH TEACHINGS. PATIENT TO FOLLOW UP WITH PCP IN 1-2 WEEKS OR PER FACILITY PROTOCOL. IV ACCESS TO RIGHT AC REMOVED, APPLIED PRESSURE AND DRESSING, NO BLEEDING. BENNY MIDLINE IN PLACE, CDI DRESSING FLUSHES WELL. PT TO CONTINUE MERREM ATB AT FACILITY FOR 6 MORE [address]YS. SIMENTAL CATHETER IN PLACE, PATENT INTACT. PHOTOS OF SKIN ISSUES TAKEN AND PLACED INSIDE THE CHART. PM CARE AND PRESCRIBED WOUND TREATMENT DONE EARLIER. NO BELONGINGS. ALL PAPER WORKS SIGNED BY 2 NURSES. PICKED UP BY [facility] AND WILL TRANSPORT PATIENT TO FACILITY. REPORT GIVEN TO SUZY AT FACILITY EARLIER.
== END 2022-10-24 16:23 | DRG 853 ==
LOC: ER 17:45 → TELE1 22:19 → TELE-TD 10-19 20:34 → TELE1 10-21 09:39
PROVIDERS: ADMIT Nurse Practitioner Acute Care; ATTEND Internal Medicine
PROC: 0JB70ZZ Excision of Back Subcutaneous Tissue and Fascia, Open Approach (ICD-10-PCS; principal; 2022-10-18)
PROC: 05HC33Z Insertion of Infusion Device into Left Basilic Vein, Percutaneous Approach (ICD-10-PCS; 2022-10-20)
DX: A41.9 Sepsis, unspecified organism (principal); E43 Unspecified severe protein-calorie malnutrition; L89.153 Pressure ulcer of sacral region, stage 3; J69.0 Pneumonitis due to inhalation of food and vomit; J96.01 Acute respiratory failure with hypoxia; J15.6 Pneumonia due to other Gram-negative bacteria; D68.59 Other primary thrombophilia; F02.83 Dementia in other diseases classified elsewhere, unspecified severity, with mood disturbance; E87.20 Acidosis, unspecified; G91.2 (Idiopathic) normal pressure hydrocephalus; I13.0 Hypertensive heart and chronic kidney disease with heart failure and stage 1 through stage 4 chronic kidney disease, or unspecified chronic kidney disease; R64 Cachexia; I50.30 Unspecified diastolic (congestive) heart failure; N39.0 Urinary tract infection, site not specified; Z20.822 Contact with and (suspected) exposure to COVID-19; E88.09 Other disorders of plasma-protein metabolism, not elsewhere classified; G30.9 Alzheimer's disease, unspecified; D63.8 Anemia in other chronic diseases classified elsewhere; E78.5 Hyperlipidemia, unspecified; K21.9 Gastro-esophageal reflux disease without esophagitis; E11.22 Type 2 diabetes mellitus with diabetic chronic kidney disease; Z79.84 Long term (current) use of oral hypoglycemic drugs; Z79.4 Long term (current) use of insulin; Z79.82 Long term (current) use of aspirin; Z79.899 Other long term (current) drug therapy; R62.7 Adult failure to thrive; N18.9 Chronic kidney disease, unspecified; R13.10 Dysphagia, unspecified; F32.9 Major depressive disorder, single episode, unspecified; E03.9 Hypothyroidism, unspecified; Y95 Nosocomial condition; Z87.440 Personal history of urinary (tract) infections; Z74.09 Other reduced mobility; G31.9 Degenerative disease of nervous system, unspecified; B96.20 Unspecified Escherichia coli [E. coli] as the cause of diseases classified elsewhere; Z66 Do not resuscitate
CPT/HCPCS: 36410; 36415; 36600; 70450-TC; 71045-TC; 80048-TC; 80053-TC; 80061-TC; 80076-TC; 81001; 82010-TC; 82803-TC; 82962-TC; 83605-TC; 83735-TC; 83880; 84100-TC; 84443-TC; 84484-TC; 85025-TC; 85378-TC; 85730-TC; 87040-TC; 87081-TC; 87086-TC; 92526; 92611-TC; 94799-TC; A4223; A6248; A6253; A6403; C9113; C9803; G0378; J1650; J1815; J2185; J2543; J3475; J3480; J3490; J7030; J7050; J7060; J7070; Q9967